=== PATIENT | female | born 1975 | race African-American/Black ===

== ENCOUNTER 2017-10-19 15:02 | Outpatient (CLI) | payer MEDICAID ==
[2014-04-14 10:50] VITALS: Ht 157.5 cm; Wt 68.0 kg
[~2017-10-19] VITALS: Ht 157.5 cm; Wt 68.0 kg
[~2017-10-19 15:02] MED LIST: AMOX-362 PO; AMOX-559 PO; ARIP20TA11 PO; CEPH-13 PO; CEPH250C37 PO; IBUP800T37 PO; INSU100I28 SQ; INSU100I30 SQ; LANI SUBQ; LISI20TA29 PO; LOR5/325 PO; LOVA20TA99 PO; LURA40TA3 PO; METO-233 PO; MUPI15CR2 TP; NAPR375T44 PO; POTA20TA85 PO; SERT-1 PO; TRAM-420 PO; [UNRECOGNIZED DRUG - REMARK]
--- NOTE | 2017-10-20 10:03 | Medical Nutrition Therapy ---
Nutrition Anthropometrics Height (Inches): 62.00 Weight (Pounds): 150 BMI Calculated: 24.32 [place] Nutrition Score: [place]th Nutrition Risk Score: Dietary Referral Nutrition Risk Factors: Nutrition Risk Comment: Physical Findings Physical Appearance: Overweight BMI 25-29 (27.4) Skin Appearance Skin Appearance: Edema Edema Location Modifier: Edema Location: Type of Edema: Degree of Edema: Gastrointestinal Symptoms GI Symtoms: Tube Present: Bowel Sounds: Recent Bowel Pattern: Stool Characteristics: Nutrition/Food History Increased Appetite Skipped Meals: Yes (ocassionally) Alcohol Use: Never Exercise: No Breakfast: 3 cups oatmeal or cold cereal w/ 1/2 banana, or breakfast burrito Lunch: 1.5 cup rice, 3 oz pork, veggies Dinner: 1 cup rice, 3 oz meat, veggies, 1 small apple Snacks: popcorn, fruit, or cheese and crackers (has 1/2 cup milk w/ meals) Nutritional Education Nutrition Education Topic: Diabetic Nutrition Learning Barriers: Language (Pt stated she speaks Bengali and Finnish. Offered tajik education materials but pt said Finnish was acceptable.) Learning Readiness: Interested Teaching Methods: Discussion, Handout, Demonstration Response to Teaching: Verbalize understanding, Reinforcement needed Teaching Recipient: Patient, Significant Other Nutrition Counseling: Pt is a 41-year-old female with type 2 diabetes. Pt has a A1c of 15. Her blood sugars typically run in the 300s. Pt reports when she lost weight 7-10 years ago she had an improved A1C. She said during that time she cut down carbs and meat. Pt is averaging 75-90 grams of carbs per meal, specifically oatmeal, rice, and cold cereals. We discussed aiming for 45 grams per meal or three 1/2 cup servings. Pt thought that carbs were only "sweet" foods such as desserts. We discussed that carbohydrates include starchy foods, milk, fruit, and sweets. Discusesed glycemic index and carbs that imcreases BG rapidly like the rice, inst oatmeal and cold ceral that she consumes. Practiced carb counting on a sample meal plan. Pt was unable to return demonstration initiall then was able to correctly count 1 menu. Pt needs additional reinforcement on carb counting if she goes on a pump. Pt is very interested in the pump because she does not like giving herself insulin and checking her blood sugar option. We discussed that the pump does still require her to check her blood sugar often and that the pump must be changed out every 3 days. Pt felt that the pump would really help her get her blood sugar under control. Pt gave permission to tristin name to [facility] to contact her for possible insulin pump. Discussed that carb counting would be very important when she went on the pump. She was willing to try carb counting. Nutrition Monitoring & Eval RD Patient Assessment Time: [address] Assessment Type: RD Education Nutritional Comment: Provided 1 hours of diabetes education focusing on nutrition. Copies To Copies to: ALEAH ABURTO PA-C, BETH Oct 19, 2017 16:30
== END 2017-11-01 16:02 | disposition home or self-care (01) ==
LOC: DIET 15:02
PROVIDERS: ATTEND Physician Assistant
DX: E11.69 Type 2 diabetes mellitus with other specified complication (principal); Z79.4 Long term (current) use of insulin; Z68.24 Body mass index [BMI] 24.0-24.9, adult
CPT/HCPCS: G0108 ×2

== ENCOUNTER 2018-01-23 10:21 | Emergency (ER) | payer MEDICAID ==
[2014-04-14 10:50] VITALS: Wt 68.0 kg
[2018-01-23] MEDS ORDERED: NS(*) 0.9% 1000 ML BAG 1,000 ML IV ONE (10:38)
[2018-01-23] MEDS ORDERED: DIPHTH/TETANUS/ACEL. PERTUSSIS IM ONLY ONE (11:05)
[2018-01-23] MEDS ORDERED: fentaNYL CITR 100 MCG/2 ML AMP IVP ONE (11:05)
[2018-01-23 11:08] LABS: PLATELET COUNT, AUTOMATED 224 K/uL (150-450)
[2018-01-23] MEDS ORDERED: INS HUM REG* 100 U/ML(ER ONLY) 100 UNIT in NS(*) 0.9% 100 ML BAG 99 ML IV SCH (11:30)
--- NOTE | 2018-01-23 11:45 | ER Report ---
History and Physical Time Seen By MD: 11:00 Hx. of Stated Complaint: pt presents with superficial cut to l thumb last night. Pt is type 2 diabetic and thinks her elevater glucose last night (600) was due to her cut HPI/ROS 42-year-old female ambulatory to the ER has a small laceration left thumb is a type II diabetic on insulin states that to the nurses that she has had problems getting her medications tells me that she hasn't missed any doses as her insulin glucometer has read high the last 2 days Allergies: Coded Allergies: quinine (Verified Allergy, Severe, SOB, 01/23/18) Home Meds Reported Medications Metoprolol Succinate (TOPROL XL) 50 Mg Tab.er.24h, 2 TAB PO QDAY, TAB 05/19/16 Insulin Glargine (LANTUS) 100 Unit/Ml Soln, 24 UNIT SUBQ HS, ML 05/19/16 Insulin Lispro 100 Un/Ml Pen (HUMALOG 3 ML PEN) 100 Unit/1 Ml Insuln.pen, 27 UNIT SQ ACHS, #1 3 Refills FOR GLUCOSE 150-200 GIVE 2 UNITS. FOR GLUCOSE 201-250 GIVE 4 UNITS. FOR GLUCOSE 251-300 GIVE 6 UNITS. FOR GLUCOSE 301-350 GIVE 8 UNITS. FOR GLUCOSE OVER 350 GIVE 10 UNITS. IF GLUCOSE UNDER 50, DRINK JUICE IF AWAKE OR CALL DOCTOR OR 911 IF NOT AWAKE. IF GLUCOSE OVER 400 GIVE 10 UNITS AND CALL DOCTOR. 04/17/14 Sertraline Hcl (ZOLOFT) 50 Mg Tablet, 50 MG PO QDAY 04/17/14 Lurasidone Hcl (LATUDA) 40 Mg Tablet, 60 MG PO QAM TAKE PER PEAK WELLNESS. TAKE WITH FOOD. 04/17/14 Lisinopril (LISINOPRIL) 20 Mg Tablet, 40 MG PO QDAY, #30 3 Refills 04/17/14 Insulin Glargine 100 Un/Ml Pen (LANTUS SOLOSTAR PEN) 100 Unit/1 Ml Insuln.pen, 24 UNIT SQ DAILY, #1 4 Refills 04/17/14 Potassium Chloride (KLOR-CON M20) 20 Meq Tab.er.prt, 20 MEQ PO QDAY, #30 3 Refills 04/17/14 Discontinued Scripts Amoxicillin (AMOXICILLIN) 500 Mg Capsule, 1 CAP PO Q8H, #15 CAPSULE 0 Refills TAKE ONE CAPSULE BY MOUTH EVERY 8 HOURS Prov:KASARDA,DEIRDRE C MD 09/16/17 Naproxen (NAPROXEN) 375 Mg Tablet, 375 MG PO TID for PAIN, #30 TAB 0 Refills Prov:DEIRDRE SUAREZ MD 09/16/17 Past Medical/Surgical History Type II diabetes, hypertension, and depression Reviewed Nurses Notes: Yes Old Medical Records Reviewed: Yes Hx Smoking: Yes (10/12PPD) Smoking Status: Current: Every Day Smoker Exposure to Second Hand Smoke?: No Hx Substance Use Disorder: No Hx Alcohol Use: No Constitutional Vital Sign - Last 24 Hours 01/23/18 01/23/18 01/23/18 01/23/18 10:25 10:26 10:51 11:21 Temp 97.7 Pulse 79 75 71 Resp 20 22 10 B/P (MAP) 126/82 (97) 126/77 Pulse Ox 92 O2 Delivery Room Air 01/23/18 01/23/18 01/23/18 01/23/18 11:51 11:56 12:26 12:56 Pulse 71 70 70 75 Resp 16 15 17 15 Pulse Ox 95 92 01/23/18 01/23/18 01/23/18 01/23/18 13:07 13:10 13:15 13:17 Pulse 70 B/P (MAP) 137/82 (100) 137/82 (100) 134/104 (114) 137/84 (101) Pulse Ox 94 O2 Delivery Room Air Intake and Output 01/23/18 01/23/18 01/24/18 15:00 23:00 07:00 Intake Total 710.7 ml Balance 710.7 ml Physical Exam 42-year-old female she is alert anxious head normocephalic/atraumatic tympanic membranes are non-reddened throat is non-reddened mucous membranes are dry neck is supple no JVD heart rate regular no murmurs rubs and gallops lungs clear to auscultation abdomen is soft moves all extremities does have a laceration left thumb no active bleeding currently laceration is 1 inch Medical Decision Making Data Points Result Diagram: 01/23/18 1054 01/23/18 1054 Laboratory Hematology Test 01/23/18 10:54 01/23/18 11:41 01/23/18 12:56 Red Blood Count 5.17 M/uL (4.17-5.56) Mean Corpuscular Volume 87.9 fL (80.0-96.0) Mean Corpuscular Hemoglobin 30.1 pg (26.0-33.0) Mean Corpuscular Hemoglobin Concent 34.3 g/dL (32.0-36.0) Red Cell Distribution Width 13.0 % (11.5-14.5) Mean Platelet Volume 9.1 fL (7.2-11.1) Neutrophils (%) (Auto) 61.7 % (39.4-72.5) Lymphocytes (%) (Auto) 29.7 % (17.6-49.6) Monocytes (%) (Auto) 7.0 % (4.1-12.4) Eosinophils (%) (Auto) 0.7 % (0.4-6.7) Basophils (%) (Auto) 0.9 % (0.3-1.4) Nucleated RBC Relative Count (auto) 0.0 /100WBC Neutrophils # (Auto) 3.4 K/uL (2.0-7.4) Lymphocytes # (Auto) 1.6 K/uL (1.3-3.6) Monocytes # (Auto) 0.4 K/uL (0.3-1.0) Eosinophils # (Auto) 0.0 K/uL (0.0-0.5) Basophils # (Auto) 0.0 K/uL (0.0-0.1) Nucleated RBC Absolute Count (auto) 0.00 K/uL Blood Gas Patient Temperature Unknown DEGREES Venous Blood pH 7.37 (7.31-7.41) Venous Blood Partial Pressure CO2 43 mmHg Venous Blood Partial Pressure O2 35 mmHg Venous Blood HCO3 25 mmol/L Venous Blood Oxygen Saturation 64 % Venous Blood Base Excess -1 mmol/L Oxygen Liters/Minute Room air Sodium Level 127 mmol/L (137-145) Potassium Level 4.6 mmol/L (3.5-5.0) Chloride Level 89 mmol/L (98-107) Carbon Dioxide Level 24 mmol/L (22-31) Blood Urea Nitrogen 12 mg/dl (7-18) Creatinine 0.80 mg/dl (0.52-1.04) Glomerular Filtration Rate Calc > 60.0 Random Glucose 813 mg/dl (75-110) Osmolality 314 mOSM/K (275-295) Calcium Level 9.5 mg/dl (8.4-10.2) Total Bilirubin 0.6 mg/dl (0.2-1.3) Aspartate Amino Transf (AST/SGOT) 21 U/L (0-35) Alanine Aminotransferase (ALT/SGPT) 23 U/L (0-56) Alkaline Phosphatase 214 U/L (0-126) Troponin I < 0.012 ng/ml Total Protein 7.1 gm/dl (6.3-8.2) Albumin 3.9 g/dl (3.5-5.0) Thyroid Stim Hormone, Ultra Sensitv 0.803 uIU/ml (0.465-4.680) Human Chorionic Gonadotropin, Qual Negative (NEGATIVE) Acetone, Qualitative Negative Urine Color Colorless Urine Clarity Clear Urine pH 5.0 pH (4.8-9.5) Urine Specific [place] 1.024 Urine Protein Negative mg/dL (NEGATIVE) Urine Glucose (UA) 500 mg/dL (NEGATIVE) Urine Ketones Negative mg/dL (NEGATIVE) Urine Blood Negative (NEGATIVE) Urine Nitrite Negative (NEGATIVE) Urine Bilirubin Negative (NEGATIVE) Urine Urobilinogen Negative mg/dL (0.2-1.9) Urine Leukocyte Esterase Negative (NEGATIVE) Urine RBC <1 /HPF (0-2/HPF) Urine WBC 1 /HPF (0-5/HPF) Urine Squamous Epithelial Cells Moderate /LPF (</=FEW) Urine Bacteria Negative /HPF (NONE-FEW) Urine Mucus None /HPF (NONE-FEW) Urine Opiates Screen Negative Urine Barbiturates Screen Negative Ur Tricyclic Antidepressants Screen Negative Urine Phencyclidine Screen Negative Urine Amphetamines Screen Negative Urine Benzodiazepines Screen Negative Urine Cocaine Screen Negative Urine Cannabinoids Screen Positive Whole Blood Glucose 410 mg/DL (75-110) Chemistry Test 01/23/18 10:54 01/23/18 11:41 01/23/18 12:56 White Blood Count 5.5 k/uL (4.5-11.0) Red Blood Count 5.17 M/uL (4.17-5.56) Hemoglobin 15.6 g/dL (12.0-16.0) Hematocrit 45.4 % (34.0-47.0) Mean Corpuscular Volume 87.9 fL (80.0-96.0) Mean Corpuscular Hemoglobin 30.1 pg (26.0-33.0) Mean Corpuscular Hemoglobin Concent 34.3 g/dL (32.0-36.0) Red Cell Distribution Width 13.0 % (11.5-14.5) Platelet Count 224 K/uL (150-450) Mean Platelet Volume 9.1 fL (7.2-11.1) Neutrophils (%) (Auto) 61.7 % (39.4-72.5) Lymphocytes (%) (Auto) 29.7 % (17.6-49.6) Monocytes (%) (Auto) 7.0 % (4.1-12.4) Eosinophils (%) (Auto) 0.7 % (0.4-6.7) Basophils (%) (Auto) 0.9 % (0.3-1.4) Nucleated RBC Relative Count (auto) 0.0 /100WBC Neutrophils # (Auto) 3.4 K/uL (2.0-7.4) Lymphocytes # (Auto) 1.6 K/uL (1.3-3.6) Monocytes # (Auto) 0.4 K/uL (0.3-1.0) Eosinophils # (Auto) 0.0 K/uL (0.0-0.5) Basophils # (Auto) 0.0 K/uL (0.0-0.1) Nucleated RBC Absolute Count (auto) 0.00 K/uL Blood Gas Patient Temperature Unknown DEGREES Venous Blood pH 7.37 (7.31-7.41) Venous Blood Partial Pressure CO2 43 mmHg Venous Blood Partial Pressure O2 35 mmHg Venous Blood HCO3 25 mmol/L Venous Blood Oxygen Saturation 64 % Venous Blood Base Excess -1 mmol/L Oxygen Liters/Minute Room air Glomerular Filtration Rate Calc > 60.0 Osmolality 314 mOSM/K (275-295) Calcium Level 9.5 mg/dl (8.4-10.2) Total Bilirubin 0.6 mg/dl (0.2-1.3) Aspartate Amino Transf (AST/SGOT) 21 U/L (0-35) Alanine Aminotransferase (ALT/SGPT) 23 U/L (0-56) Alkaline Phosphatase 214 U/L (0-126) Troponin I < 0.012 ng/ml Total Protein 7.1 gm/dl (6.3-8.2) Albumin 3.9 g/dl (3.5-5.0) Thyroid Stim Hormone, Ultra Sensitv 0.803 uIU/ml (0.465-4.680) Human Chorionic Gonadotropin, Qual Negative (NEGATIVE) Acetone, Qualitative Negative Urine Color Colorless Urine Clarity Clear Urine pH 5.0 pH (4.8-9.5) Urine Specific [place] 1.024 Urine Protein Negative mg/dL (NEGATIVE) Urine Glucose (UA) 500 mg/dL (NEGATIVE) Urine Ketones Negative mg/dL (NEGATIVE) Urine Blood Negative (NEGATIVE) Urine Nitrite Negative (NEGATIVE) Urine Bilirubin Negative (NEGATIVE) Urine Urobilinogen Negative mg/dL (0.2-1.9) Urine Leukocyte Esterase Negative (NEGATIVE) Urine RBC <1 /HPF (0-2/HPF) Urine WBC 1 /HPF (0-5/HPF) Urine Squamous Epithelial Cells Moderate /LPF (</=FEW) Urine Bacteria Negative /HPF (NONE-FEW) Urine Mucus None /HPF (NONE-FEW) Urine Opiates Screen Negative Urine Barbiturates Screen Negative Ur Tricyclic Antidepressants Screen Negative Urine Phencyclidine Screen Negative Urine Amphetamines Screen Negative Urine Benzodiazepines Screen Negative Urine Cocaine Screen Negative Urine Cannabinoids Screen Positive Whole Blood Glucose 410 mg/DL (75-110) Toxicology Test 01/23/18 10:54 01/23/18 11:41 Acetone, Qualitative Negative Urine Opiates Screen Negative Urine Barbiturates Screen Negative Ur Tricyclic Antidepressants Screen Negative Urine Phencyclidine Screen Negative Urine Amphetamines Screen Negative Urine Benzodiazepines Screen Negative Urine Cocaine Screen Negative Urine Cannabinoids Screen Positive Urinalysis Test 01/23/18 11:41 Urine Color Colorless Urine Clarity Clear Urine pH 5.0 pH (4.8-9.5) Urine Specific [place] 1.024 Urine Protein Negative mg/dL (NEGATIVE) Urine Glucose (UA) 500 mg/dL (NEGATIVE) Urine Ketones Negative mg/dL (NEGATIVE) Urine Blood Negative (NEGATIVE) Urine Nitrite Negative (NEGATIVE) Urine Bilirubin Negative (NEGATIVE) Urine Urobilinogen Negative mg/dL (0.2-1.9) Urine Leukocyte Esterase Negative (NEGATIVE) Urine RBC <1 /HPF (0-2/HPF) Urine WBC 1 /HPF (0-5/HPF) Urine Squamous Epithelial Cells Moderate /LPF (</=FEW) Urine Bacteria Negative /HPF (NONE-FEW) Urine Mucus None /HPF (NONE-FEW) EKG/Imaging Monitor Interpretation: Normal Sinus Rhythm ED Course/Re-evaluation Clinical Indication for ER IV: Hydration ED Course Did discuss the patient with Dr. Douglas Hudson he feels that she can be treated as an outpatient we did give her some IV insulin and fluids have lowered her sugar to 400 she will be going to get her normal insulin and restarting her regime have contacted Dr. Aleah Aburto's office to get sliding scale for the patient apparently she's lost her sliding scale for home use Re-evaluation Diagnosis hyperglycemia, laceration left thumb, noncompliance with medications Procedure Patient stated thumb laceration had been bleeding overnight was bothering her to the point she could not sleep did offer to put a stitch in it for her did a digital block with 1% lidocaine 3 mL after the digital block was done patient refused to have a stitch put in stated she felt like it might hurt she did allow me to Steri-Strip the laceration 3 Steri-Strips are placed in the one- inch laceration left thumb Decision to Disposition Date: Jan 23, 2018 Decision to Disposition Time: 13:24 Depart Departure Latest Vital Signs Vital Signs Date Time Temp Pulse Resp B/P (MAP) Pulse Ox O2 Delivery O2 Flow Rate FiO2 01/23/18 13:17 137/84 (101) 01/23/18 13:10 70 94 Room Air 01/23/18 12:56 15 01/23/18 10:26 97.7 Impression: Primary Impression: Hyperglycemia Additional Impression: Laceration of left thumb Condition: Improved Disposition: HOME OR SELF-CARE Referrals: ALEAH ABURTO PA-C (PCP) 1 Day Patient Instructions: Diabetic Hyperglycemia (ED), Laceration (ED), Steristrips (ED) Additional Instructions: Sliding scale as given by your primary care physician, take your insulin as instructed, follow-up with Aleah tomorrow Problem Qualifiers ARTEMIO BURTON Jan 23, 2018 11:45
--- NOTE | 2018-01-23 12:18 | EKG ---
FACILITY: [facility] [place] PATIENT NAME: IGNACIA BENAVIDES : [id number] MR: [id number] V: [id number] EXAM DATE: ORDERING PHYSICIAN: ARTEMIO BURTON TECHNOLOGIST: CALEB Test Reason : ALTERED LOC Blood Pressure : / mmHG Vent. Rate : 065 BPM Atrial Rate : 065 BPM P-R Int : 140 ms QRS Dur : 082 ms QT Int : 430 ms P-R-T Axes : 056 003 019 degrees QTc Int : 447 ms Sinus rhythm Borderline left axis Nonspecific ST findings diffusely - suspect early repolarization, but cannot exclude other causes Confirmed by COMPA BRASHER [id number] on 01/23/2018 5:06:52 PM Referred By: MACIEJ Confirmed By:COMPA BRASHER
[2018-01-23] MEDS ORDERED: NS(*) 0.9% 1000 ML BAG 1,000 ML IV PRN (12:25)
--- NOTE | 2018-01-23 12:55 | RADIOLOGY IMAGING REPORT ---
FACILITY: [facility] PATIENT NAME: Kim Price : 1975 MR: [id number] V: [id number] EXAM DATE: [id number] ORDERING PHYSICIAN: ARTEMIO BURTON TECHNOLOGIST: Location: [facility] [place] Patient: Kim Price : 1975 Visit/Account:[id number] Date of Sevice: 01/23/2018 Exam type: CHEST SINGLE AP History: Cough hyperglycemia Comparison: April 13, 2014. Findings: The lungs are free of acute effusions, infiltrates or edema. Cardiac silhouette is normal in size. The trachea is in midline. There is no evidence of pneumothorax or pneumomediastinum. IMPRESSION: 1. No acute cardiac pulmonary process is seen Report Dictated By: Richa Archibald MD at 01/23/2018 12:31 PM Report E-Signed By: Richa Archibald MD at 01/23/2018 12:50 PM WSN:[email or web address]
[2018-01-23 13:17] VITALS: BP 137/84
== END 2018-01-23 13:18 | disposition home or self-care (01) ==
LOC: ER 10:30
DX: S61.012A Laceration without foreign body of left thumb without damage to nail, initial encounter (principal); E11.65 Type 2 diabetes mellitus with hyperglycemia
CPT/HCPCS: 36416; 71045; 80305; 81001; 82009; 82803; 82948; 83930; 84443; 84484; 84703; 85025; 90471; 90715; 93005; 96361; 96365; 96375; 99284; J1815; J3010; J7030; J7050; 82040; 82247; 82310; 82374; 82435; 82565; 82947; 84075; 84132; 84155; 84295; 84450; 84460; 84520

== ENCOUNTER 2018-03-28 18:12 | Emergency (ER) | payer MEDICAID ==
[2014-04-14 10:50] VITALS: Wt 68.0 kg
[2018-03-28] MEDS ORDERED: ATOR40TA24 PO (18:24)
--- NOTE | 2018-03-28 18:26 | ER Report ---
History and Physical Time Seen By : 18:26 Hx. of Stated Complaint: pt is in tears saying she has insomnia, has not slept in months, has back pain from a fall 4 yrs ago HPI/ROS CHIEF COMPLAINT: insomnia, constipation, sore throat HISTORY OF PRESENT ILLNESS: This is a 42 year old female. She tells me she is severely fatigued. Indicated that she cannot sleep.. She take Effexor and Latuda for depression. She says that she also takes Amitriptyline at bedtime, but does not remember the dose. In the past she has been on Seroquel and one other medicine that she cannot remember. She said that these were stopped because of her blood sugars going up when she takes them. She also has pain from a past coccyx injury and the pain interferes with sleep as well. She has been having severe constipation as well. Initially told me that her last BM was 3 days ago, but then remembered she went today after drinking a glass of milk. She also has a sore throat for the last few days, hurts only when she tries to swallow. No fevers or chills. No shortness of breath. No chest pain. No abdominal pain. No nausea or vomiting. REVIEW OF SYSTEMS: As above. Allergies: Coded Allergies: quinine (Verified Allergy, Severe, SOB, 03/28/18) Home Meds Active Scripts Hydroxyzine Hcl (HYDROXYZINE HCL) 50 Mg Tablet, 50 MG PO QHS Y for INSOMNIA, # 30 TAB 0 Refills Prov:DANGELO SAL MD 03/28/18 Potassium Chloride (KLOR-CON M20) 20 Meq Tab.er.prt, 20 MEQ PO QDAY, #30 TAB 0 Refills Prov:DANGELO SAL MD 03/28/18 Reported Medications Atorvastatin Calcium (LIPITOR) 40 Mg Tablet, 1 TAB PO QDAY, TAB 03/28/18 Metoprolol Succinate (TOPROL XL) 50 Mg Tab.er.24h, 2 TAB PO QDAY, TAB 05/19/16 Insulin Glargine (LANTUS) 100 Unit/Ml Soln, 24 UNIT SUBQ HS, ML 05/19/16 Insulin Lispro 100 Un/Ml Pen (HUMALOG 3 ML PEN) 100 Unit/1 Ml Insuln.pen, 27 UNIT SQ ACHS, #1 3 Refills FOR GLUCOSE 150-200 GIVE 2 UNITS. FOR GLUCOSE 201-250 GIVE 4 UNITS. FOR GLUCOSE 251-300 GIVE 6 UNITS. FOR GLUCOSE 301-350 GIVE 8 UNITS. FOR GLUCOSE OVER 350 GIVE 10 UNITS. IF GLUCOSE UNDER 50, DRINK JUICE IF AWAKE OR CALL DOCTOR OR 911 IF NOT AWAKE. IF GLUCOSE OVER 400 GIVE 10 UNITS AND CALL DOCTOR. 04/17/14 Sertraline Hcl (ZOLOFT) 50 Mg Tablet, 50 MG PO QDAY 04/17/14 Lurasidone Hcl (LATUDA) 40 Mg Tablet, 60 MG PO QAM TAKE PER PEAK WELLNESS. TAKE WITH FOOD. 04/17/14 Lisinopril (LISINOPRIL) 20 Mg Tablet, 40 MG PO QDAY, #30 3 Refills 04/17/14 Insulin Glargine 100 Un/Ml Pen (LANTUS SOLOSTAR PEN) 100 Unit/1 Ml Insuln.pen, 42 UNIT SQ DAILY, #1 4 Refills 04/17/14 Potassium Chloride (KLOR-CON M20) 20 Meq Tab.er.prt, 20 MEQ PO QDAY, #30 3 Refills 04/17/14 Reviewed Nurses Notes: Yes Hx Smoking: Yes (D) Smoking Status: Current: Every Day Smoker Exposure to Second Hand Smoke?: No Hx Substance Use Disorder: No Hx Alcohol Use: No Constitutional Vital Sign - Last 24 Hours 03/28/18 03/28/18 03/28/18 03/28/18 18:17 18:18 18:27 18:30 Temp 97.9 Pulse 86 80 Resp 22 B/P (MAP) 150/92 150/92 (111) 124/74 (91) Pulse Ox 96 95 O2 Delivery Room Air 03/28/18 03/28/18 03/28/18 03/28/18 18:42 18:57 19:00 19:12 Pulse 88 78 77 B/P (MAP) ???/??? (9516) Pulse Ox 96 95 95 03/28/18 03/28/18 03/28/18 03/28/18 19:27 19:30 19:42 19:57 Pulse 73 78 86 B/P (MAP) ???/??? (7377) Pulse Ox 99 95 97 03/28/18 03/28/18 03/28/18 03/28/18 20:02 20:05 20:17 20:32 Pulse ??? 83 87 B/P (MAP) 160/92 (114) Pulse Ox 95 97 Physical Exam General Appearance: The patient is alert. No acute distress. Eyes: Pupils are equal, round. No pallor, injection or icterus. ENT: Mucous membranes are moist. Normal oral mucosa. Posterior oropharynx has slight erythema, but no exudates or hypertrophy. Normal tympanic membranes and canals. Neck: Supple and non tender. Small anterior cervical lymphadenopathy. Respiratory: Lungs are clear to auscultation. Cardiovascular: Regular rate and rhythm. No murmurs, gallops or rubs. Normal capillary refill. Gastrointestinal: Abdomen is soft and non tender. Nondistended. Normal active bowel sounds. Neurological: Alert and oriented x3. No focal neurologic deficits. Skin: Warm and dry. No rashes. DIFFERENTIAL DIAGNOSIS: After history and physical exam, differential diagnosis was considered for a patient with fatigue, insomnia, sore throat and constipation. Medical Decision Making Data Points Result Diagram: 03/28/18199903/28/181999 Laboratory Hematology Test 03/28/18 20:00 Red Blood Count 4.59 M/uL (4.17-5.56) Mean Corpuscular Volume 87.0 fL (80.0-96.0) Mean Corpuscular Hemoglobin 30.5 pg (26.0-33.0) Mean Corpuscular Hemoglobin Concent 35.0 g/dL (32.0-36.0) Red Cell Distribution Width 13.9 % (11.5-14.5) Mean Platelet Volume 7.6 fL (7.2-11.1) Neutrophils (%) (Auto) 74.5 % (39.4-72.5) Lymphocytes (%) (Auto) 16.8 % (17.6-49.6) Monocytes (%) (Auto) 7.6 % (4.1-12.4) Eosinophils (%) (Auto) 0.3 % (0.4-6.7) Basophils (%) (Auto) 0.8 % (0.3-1.4) Nucleated RBC Relative Count (auto) 0.0 /100WBC Neutrophils # (Auto) 6.5 K/uL (2.0-7.4) Lymphocytes # (Auto) 1.5 K/uL (1.3-3.6) Monocytes # (Auto) 0.7 K/uL (0.3-1.0) Eosinophils # (Auto) 0.0 K/uL (0.0-0.5) Basophils # (Auto) 0.1 K/uL (0.0-0.1) Nucleated RBC Absolute Count (auto) 0.00 K/uL Sodium Level 136 mmol/L (137-145) Potassium Level 3.4 mmol/L (3.5-5.0) Chloride Level 95 mmol/L (98-107) Carbon Dioxide Level 30 mmol/L (22-31) Blood Urea Nitrogen 12 mg/dl (7-18) Creatinine 0.80 mg/dl (0.52-1.04) Glomerular Filtration Rate Calc > 60.0 Random Glucose 110 mg/dl (75-110) Calcium Level 9.3 mg/dl (8.4-10.2) Total Bilirubin 0.3 mg/dl (0.2-1.3) Aspartate Amino Transf (AST/SGOT) 27 U/L (0-35) Alanine Aminotransferase (ALT/SGPT) 32 U/L (0-56) Alkaline Phosphatase 94 U/L (0-126) Total Protein 6.9 g/dl (6.3-8.2) Albumin 3.5 g/dl (3.5-5.0) Chemistry Test 03/28/18 20:00 White Blood Count 8.7 k/uL (4.5-11.0) Red Blood Count 4.59 M/uL (4.17-5.56) Hemoglobin 14.0 g/dL (12.0-16.0) Hematocrit 39.9 % (34.0-47.0) Mean Corpuscular Volume 87.0 fL (80.0-96.0) Mean Corpuscular Hemoglobin 30.5 pg (26.0-33.0) Mean Corpuscular Hemoglobin Concent 35.0 g/dL (32.0-36.0) Red Cell Distribution Width 13.9 % (11.5-14.5) Platelet Count 238 K/uL (150-450) Mean Platelet Volume 7.6 fL (7.2-11.1) Neutrophils (%) (Auto) 74.5 % (39.4-72.5) Lymphocytes (%) (Auto) 16.8 % (17.6-49.6) Monocytes (%) (Auto) 7.6 % (4.1-12.4) Eosinophils (%) (Auto) 0.3 % (0.4-6.7) Basophils (%) (Auto) 0.8 % (0.3-1.4) Nucleated RBC Relative Count (auto) 0.0 /100WBC Neutrophils # (Auto) 6.5 K/uL (2.0-7.4) Lymphocytes # (Auto) 1.5 K/uL (1.3-3.6) Monocytes # (Auto) 0.7 K/uL (0.3-1.0) Eosinophils # (Auto) 0.0 K/uL (0.0-0.5) Basophils # (Auto) 0.1 K/uL (0.0-0.1) Nucleated RBC Absolute Count (auto) 0.00 K/uL Glomerular Filtration Rate Calc > 60.0 Calcium Level 9.3 mg/dl (8.4-10.2) Total Bilirubin 0.3 mg/dl (0.2-1.3) Aspartate Amino Transf (AST/SGOT) 27 U/L (0-35) Alanine Aminotransferase (ALT/SGPT) 32 U/L (0-56) Alkaline Phosphatase 94 U/L (0-126) Total Protein 6.9 g/dl (6.3-8.2) Albumin 3.5 g/dl (3.5-5.0) ED Course/Re-evaluation ED Course Discussed the labs with the patient, CBC and CMP as noted. Discussed treatment options for insomnia, but other than a couple of hydrocodone for tonight, told her she would need to discuss pain in the coccyx with her primary care provider. Will use Hydroxyzine for insomnia. Will have her use miralax for constipation with use of laxatives as needed. Re-starting her on a potassium supplement and let her know she needs labs in 1-2 weeks. Decision to Disposition Date: Mar 28, 2018 Decision to Disposition Time: 20:37 Depart Departure Latest Vital Signs Vital Signs Date Time Temp Pulse Resp B/P (MAP) Pulse Ox O2 Delivery O2 Flow Rate FiO2 03/28/18 20:32 87 97 03/28/18 20:05 160/92 (114) 03/28/18 18:17 97.9 22 Room Air Impression: Primary Impression: Coccygeal pain, chronic Additional Impressions: Insomnia Hypokalemia Constipation Condition: Improved Disposition: HOME OR SELF-CARE Referrals: ALEAH ABURTO PA-C (PCP) New Scripts Hydroxyzine Hcl (HYDROXYZINE HCL) 50 Mg Tablet 50 MG PO QHS Y for INSOMNIA, #30 TAB 0 Refills Prov: DANGELO SAL MD 03/28/18 Potassium Chloride (KLOR-CON M20) 20 Meq Tab.er.prt 20 MEQ PO QDAY, #30 TAB 0 Refills Prov: DANGELO SAL MD 03/28/18 Patient Instructions: Constipation (ED), Hypokalemia (ED), Insomnia (ED) Additional Instructions: For trouble sleeping: Take Hydroxyzine 25mg tablets, 1-2 at bedtime to help with insomnia. For constipation: Get some over the counter Dulcolax tablets and take 1 if you have not had a bowel movement in 3 days You can get some over the counter Miralax powder. Mix one scoop in liquid and drink once a day. For low potassium: Start taking a 20mEq potassium supplement once a day. Follow-up with your regular doctor for repeat lab testing. Problem Qualifiers Additional Impressions: Insomnia Insomnia type: unspecified Qualified Codes: G47.00 - Insomnia, unspecified Constipation Constipation type: unspecified constipation type Qualified Codes: K59.00 - Constipation, unspecified DANGELO SAL MD Mar 28, 2018 18:26
[2018-03-28 20:04] LABS: PLATELET COUNT, AUTOMATED 238 K/uL (150-450)
[2018-03-28 20:05] VITALS: BP 160/92
[2018-03-28] MEDS ORDERED: hydrOXYzine 25 MG TAB TH 2 TAB/BOTTLE PO ONE (20:35)
[2018-03-28] MEDS ORDERED: ACET/HYDROC 5/325MG TH ER ONLY 2 TAB/BOTTLE PO ONE (20:35)
[2018-03-28] MEDS ORDERED: HYDR-4228 PO (20:43)
[2018-03-28] MEDS ORDERED: POTA20TA85 PO (20:43)
== END 2018-03-28 20:52 | disposition home or self-care (01) ==
LOC: ER 18:45
DX: M53.3 Sacrococcygeal disorders, not elsewhere classified (principal); G47.00 Insomnia, unspecified; E87.6 Hypokalemia; K59.00 Constipation, unspecified; F17.210 Nicotine dependence, cigarettes, uncomplicated
CPT/HCPCS: 82040; 82247; 82310; 82374; 82435; 82565; 82947; 84075; 84132; 84155; 84295; 84450; 84460; 84520; 85025; 99282

== ENCOUNTER 2018-06-26 09:39 | Emergency (ER) | payer MEDICAID ==
[2014-04-14 10:50] VITALS: Wt 63.5 kg
[~2018-06-26 09:39] MED LIST changes: +ATOR40TA24 PO; +HYDR-4228 PO
--- NOTE | 2018-06-26 09:58 | ER Report ---
History and Physical Time Seen By : 09:58 Hx. of Stated Complaint: PT REPORTS PROBLEMS WITH DIABETES, NUMBNESS AND TINGLING IN HANDS/ARMS, AND DEPRESSION/ANXIETY ABOUT DIABETES AND UPCOMING SURGERY HPI/ROS 42-year-old female with a history of diabetes, anxiety, and depression presents to the emergency department with an episode of palpitations, tingling in her hands and feet, and low blood sugar this morning. She states that her Lantus to us with increased a couple weeks ago, and she feels as if her blood sugars have been low since them. She records them sometimes in the 30s. She did not take her Lantus last night, so took it this morning. After taking her Lantus immediately her blood sugar was in the 200s, so she also took her sliding scale. She admits that she is not quite sure how much of her sliding scale to a taxi take. She is asking for a new scale, so she can have better compliance. Her symptoms spontaneously is off by the time she came to the emergency department. She denies any chest pain, headache, or shortness of breath. No focal neurologic def icits. She said she did get anxious this morning secondary to a cataract surgery she was supposed to have this morning. She did start to hyperventilate which is when her hands and feet became tingly. Allergies: Coded Allergies: quinine (Verified Allergy, Severe, SOB, 06/26/18) Home Meds Active Scripts Hydroxyzine Hcl (HYDROXYZINE HCL) 50 Mg Tablet, 50 MG PO QHS PRN for INSOMNIA, #30 TAB 0 Refills Prov:DANGELO SAL MD 03/28/18 Potassium Chloride (KLOR-CON M20) 20 Meq Tab.er.prt, 20 MEQ PO QDAY, #30 TAB 0 Refills Prov:DANGELO SAL MD 03/28/18 Reported Medications [place]-3 Fatty Acids/Fish Oil (FISH OIL 1,000 MG CAPSULE) 1 Each Capsule, 1 EACH PO DAILY, CAPSULE 06/26/18 Aspirin (ASPIR 81) 81 Mg Tablet.dr, 81 MG PO QDAY, TAB 06/26/18 Atorvastatin Calcium (LIPITOR) 40 Mg Tablet, 1 TAB PO QDAY, TAB 03/28/18 Metoprolol Succinate (TOPROL XL) 50 Mg Tab.er.24h, 2 TAB PO QDAY, TAB 05/19/16 Insulin Lispro 100 Un/Ml Pen (HUMALOG 3 ML PEN) 100 Unit/1 Ml Insuln.pen, 27 UNIT SQ ACHS, #1 3 Refills FOR GLUCOSE 150-200 GIVE 2 UNITS. FOR GLUCOSE 201-250 GIVE 4 UNITS. FOR GLUCOSE 251-300 GIVE 6 UNITS. FOR GLUCOSE 301-350 GIVE 8 UNITS. FOR GLUCOSE OVER 350 GIVE 10 UNITS. IF GLUCOSE UNDER 50, DRINK JUICE IF AWAKE OR CALL DOCTOR OR 911 IF NOT AWAKE. IF GLUCOSE OVER 400 GIVE 10 UNITS AND CALL DOCTOR. 04/17/14 Sertraline Hcl (ZOLOFT) 50 Mg Tablet, 50 MG PO QDAY 04/17/14 Lurasidone Hcl (LATUDA) 40 Mg Tablet, 60 MG PO QAM TAKE PER PEAK WELLNESS. TAKE WITH FOOD. 04/17/14 Lisinopril (LISINOPRIL) 20 Mg Tablet, 40 MG PO QDAY, #30 3 Refills 04/17/14 Insulin Glargine 100 Un/Ml Pen (LANTUS SOLOSTAR PEN) 100 Unit/1 Ml Insuln.pen, 42 UNIT SQ DAILY, #1 4 Refills 04/17/14 Discontinued Reported Medications Insulin Glargine (LANTUS) 100 Unit/Ml Soln, 24 UNIT SUBQ HS, ML 05/19/16 Potassium Chloride (KLOR-CON M20) 20 Meq Tab.er.prt, 20 MEQ PO QDAY, #30 3 Refills 04/17/14 Reviewed Nurses Notes: Yes Old Medical Records Reviewed: Yes Hx Smoking: Yes (4PPD) Smoking Status: Current: Every Day Smoker Exposure to Second Hand Smoke?: No Hx Substance Use Disorder: No Hx Alcohol Use: No Constitutional Vital Sign - Last 24 Hours 06/26/18 06/26/18 06/26/18 06/26/18 09:47 09:51 10:00 10:15 Temp 97.8 Pulse 74 72 66 Resp 20 14 16 B/P (MAP) 166/111 166/111 (129) Pulse Ox 96 93 O2 Delivery Room Air 06/26/18 06/26/18 06/26/18 06/26/18 10:30 10:45 11:00 11:15 Pulse 61 71 72 66 Resp 18 21 21 7 B/P (MAP) 152/92 (112) 126/81 (96) Pulse Ox 95 06/26/18 11:26 Pulse 66 Resp 0 Physical Exam General Appearance: The patient is alert, has no immediate need for airway protection and no current signs of toxicity. Eyes: Pupils equal and round no injection. Respiratory: Chest is non tender, lungs are clear to auscultation. Cardiac: regular rate and rhythm Gastrointestinal: Abdomen is soft and non tender, no masses, bowel sounds normal. Extremities have full range of motion and are non tender. Skin: No rashes or lesions. DIFFERENTIAL DIAGNOSIS: After history and physical exam differential diagnosis was considered for hypoglycemia, panic attack, anxiety reaction Medical Decision Making Data Points Laboratory Hematology Test 06/26/18 11:05 Whole Blood Glucose 106 mg/DL (75-110) Chemistry Test 06/26/18 11:05 Whole Blood Glucose 106 mg/DL (75-110) ED Course/Re-evaluation ED Course This is a very pleasant 42-year-old female who states that the symptoms of feeling anxious, hyperventilating, and experiencing tingling in her hands and feet have been ongoing for 2 months. She does admit to some depression and anxiety. She has an appointment with a behavioral health specialist this week. She also has a follow-up appointment tomorrow with her primary care physician. He denies any SI or HI. She also says that her sugars have been low recently, and thinks that the increase and Lantus 2 months ago was too much. 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 I think given that she is eating less because she now has a job, she should decrease her Lantus. Also, the patient seems confused on her sliding scale regimen. We did give her a magnetic with a chart for her sliding scale. I think her symptoms are combination of anxiety and some hypoglycemia. Given that she says she has had blood sugars in the 30s, I recommended that she decrease her daily Lantus dose. Again she will follow-up with her primary care physician tomorrow. I also placed a consult for her for diabetic education. Decision to Disposition Date: Jun 26, 2018 Decision to Disposition Time: 11:50 Depart Departure Latest Vital Signs Vital Signs Date Time Temp Pulse Resp B/P (MAP) Pulse Ox O2 Delivery O2 Flow Rate FiO2 06/26/18 11:26 66 0 06/26/18 11:00 126/81 (96) 06/26/18 10:30 95 06/26/18 09:47 97.8 Room Air Impression: Primary Impression: Anxiety attack Additional Impression: Medication administered in error Condition: Improved Disposition: HOME OR SELF-CARE Referrals: ALEAH ABURTO PA-C (PCP) Patient Instructions: Generalized Anxiety Disorder (ED) Additional Instructions: Please see the attached sliding scale regimen for your insulin. Take only 35 units of your Lantus until follow-up with your primary doctor. Problem Qualifiers Additional Impression: Medication administered in error Encounter type: initial encounter Injury intent: accidental or unintentional Qualified Codes: T50.901A - Poisoning by unspecified drugs, medicaments and biological substances, accidental (unintentional), initial encounter NELY TORRES MD Jun 26, 2018 09:58
[2018-06-26] MEDS ORDERED: OMEG-11 PO (10:02)
[2018-06-26] MEDS ORDERED: ASPI-1471 PO (10:02)
[2018-06-26 12:00] VITALS: BP 151/99
== END 2018-06-26 12:18 | disposition home or self-care (01) ==
LOC: ER 09:53
DX: T50.901A Poisoning by unspecified drugs, medicaments and biological substances, accidental (unintentional), initial encounter (principal); E11.649 Type 2 diabetes mellitus with hypoglycemia without coma; F17.210 Nicotine dependence, cigarettes, uncomplicated; F41.9 Anxiety disorder, unspecified
CPT/HCPCS: 36416; 82948; 99282

== ENCOUNTER 2018-07-04 20:42 | Emergency (ER) | payer MEDICAID ==
[2014-04-14 10:50] VITALS: Wt 68.5 kg
[2018-07-04 21:30] VITALS: BP 143/69
--- NOTE | 2018-07-04 22:11 | RADIOLOGY IMAGING REPORT ---
FACILITY: [facility] - [place] PATIENT NAME: Kim Price : 1975 MR: [id number] V: [id number] EXAM DATE: ORDERING PHYSICIAN: KALEIGH DE JESUS TECHNOLOGIST: Location: [facility] - [place] Patient: Kim Price : 1975 Visit/Account:[id number] Date of Sevice: 07/04/2018 HEAD W/O CONTRAST, FACIAL BONES W/O CONTRAST HISTORY: Fall with left orbital swelling. COMPARISON: None. CT cervical spine was performed concurrently. TECHNIQUE: Axial images were obtained from the skull base to the vertex without contrast. Sagittal an d coronal reformats were performed. Axial images were obtained through the face without contrast, and sagittal and coronal reformats were performed. One of the following dose optimization techniques was utilized in the performance of this exam: Autom ated exposure control; adjustment of the mA and/or kV according to the patient's size; or use of an i terative reconstruction technique. Specific details can be referenced in the facility's radiology CT exam operational policy. CONTRAST: None. FINDINGS: CT BRAIN Brain: No intracranial hemorrhage, mass, or edema. Ventricles and sulci: Sulci are normal. Ventricular size and configuration is normal. Skull: Intact. CT FACE Osseous structures: There is a medially displaced fracture through the medial left orbit (image 57). There is poor dentition with numerous dental caries, and there are periapical lucencies around some o f the teeth, which can be seen with dental infection. Soft Tissues: There is significant gas in the soft tissues of the face, left greater than right. It t racks into the left data communications engineer space and deep to the left mandible. It also surrounds the left subman dibular gland and tracks as far medially and inferiorly as the superior thyroid cartilage on the left . There is mild calcification of the left carotid bifurcation. Orbits: There is gas within the left globe related to orbital fracture. Globe is intact. Orbital musc les are normal. Paranasal sinuses and mastoids: There is mild opacification of the left ethmoid sinus related to frac ture. Paranasal sinuses otherwise are clear. Mastoids are clear. No nasal septal deviation. IMPRESSION: 1. No acute intracranial abnormality. 2. Depressed left medial orbital fracture. 3. Significant gas in the soft tissues of the face, left greater than right, related to injury. 4. Poor dentition and numerous dental caries. Follow-up with a dentist is recommended. Report Dictated By: Diamante Matamoros at 07/04/2018 9:57 PM Report E-Signed By: Diamante Matamoros at 07/04/2018 10:08 PM WSN:[id number]
--- NOTE | 2018-07-04 22:11 | RADIOLOGY IMAGING REPORT ---
FACILITY: [facility] - [place] PATIENT NAME: Kim Price : 1975 MR: [id number] V: [id number] EXAM DATE: ORDERING PHYSICIAN: KALEIGH DE JESUS TECHNOLOGIST: [place] [facility] [place]: Kim Price : 1975 Visit/Account:[id number] Date of Sevice: 07/04/2018 HEAD W/O CONTRAST, FACIAL BONES W/O CONTRAST HISTORY: Fall with left orbital swelling. COMPARISON: None. CT cervical spine was performed concurrently. TECHNIQUE: Axial images were obtained from the skull base to the vertex without contrast. Sagittal an d coronal reformats were performed. Axial images were obtained through the face without contrast, and sagittal and coronal reformats were performed. One of the following dose optimization techniques was utilized in the performance of this exam: Autom ated exposure control; adjustment of the mA and/or kV according to the patient's size; or use of an i terative reconstruction technique. Specific details can be referenced in the facility's radiology CT exam operational policy. CONTRAST: None. FINDINGS: CT BRAIN Brain: No intracranial hemorrhage, mass, or edema. Ventricles and sulci: Sulci are normal. Ventricular size and configuration is normal. Skull: Intact. CT FACE Osseous structures: There is a medially displaced fracture through the medial left orbit (image 57). There is poor dentition with numerous dental caries, and there are periapical lucencies around some o f the teeth, which can be seen with dental infection. Soft Tissues: There is significant gas in the soft tissues of the face, left greater than right. It t racks into the left exterior door installer space and deep to the left mandible. It also surrounds the left subman dibular gland and tracks as far medially and inferiorly as the superior thyroid cartilage on the left . There is mild calcification of the left carotid bifurcation. Orbits: There is gas within the left globe related to orbital fracture. Globe is intact. Orbital musc les are normal. Paranasal sinuses and mastoids: There is mild opacification of the left ethmoid sinus related to frac ture. Paranasal sinuses otherwise are clear. Mastoids are clear. No nasal septal deviation. IMPRESSION: 1. No acute intracranial abnormality. 2. Depressed left medial orbital fracture. 3. Significant gas in the soft tissues of the face, left greater than right, related to injury. 4. Poor dentition and numerous dental caries. Follow-up with a dentist is recommended. Report Dictated By: Diamante Matamoros at 07/04/2018 9:57 PM Report E-Signed By: Diamante Matamoros at 07/04/2018 10:08 PM WSN:[id number]
--- NOTE | 2018-07-04 22:19 | RADIOLOGY IMAGING REPORT ---
FACILITY: [facility] PATIENT NAME: Kim Price : 1975 MR: [id number] V: [id number] EXAM DATE: ORDERING PHYSICIAN: KALEIGH DE JESUS TECHNOLOGIST: Location: [facility] Patient: Kim Price : 1975 Visit/Account:[id number] Date of Sevice: 07/04/2018 C-SPINE W/O CONTRAST HISTORY: Fall with left orbital swelling. COMPARISON: None. CT face and CT brain were performed concurrently. TECHNIQUE: Axial images were obtained from the skull base through the upper thoracic spine. Coronal a nd sagittal reformatted images were obtained from the axial source data. One of the following dose optimization techniques was utilized in the performance of this exam: Autom ated exposure control; adjustment of the mA and/or kV according to the patient's size; or use of an i terative reconstruction technique. Specific details can be referenced in the facility's radiology CT exam operational policy. CONTRAST: None. FINDINGS: Musculoskeletal/vertebra: No acute osseous abnormality. Vertebral body heights are maintained. There is reversal of the normal cervical lordosis that appears positional. There is mild multilevel degener ative change of the spine. Prevertebral soft tissues are within normal limits. The spinal canal is no rmal in caliber. Visualized upper chest: There is a 3 x 3 mm right upper lobe pulmonary nodule (image 119 series 3). T here is a partially visualized groundglass opacity in the right upper lobe on image 122. Measures 1.6 x 1.2 cm. Soft tissues: There is mild calcification at the origin of the left subclavian artery. There is mild calcification of the carotid bifurcations. There is significant gas in the superficial and deep soft tissues of the left side of the neck related to facial injury. IMPRESSION: 1. Degenerative changes, but no acute osseous abnormality of the cervical spine. 2. Significant gas in the soft tissues of the left side of the neck related to facial injury. 3. Right upper lobe 3 mm pulmonary nodule and partially visualized right upper lobe 1.4 cm average si ze groundglass opacity/nodule without solid component. Current Fleischner Society recommendations for subsolid nodules: - Single ground glass nodule greater than or equal to 6 mm: Noncontrast CT at 6-12 months to confirm persistence, then CT every 2 years until 5 years. Current Fleischner Society recommendations for incidental <6mm pulmonary nodule (average of long and short axis) on incomplete thoracic CT scan: No further investigation is recommended given the estimated low risk of malignancy. Marcella H, Victorino Martinez, Gordo J, et al. Guidelines for management of small pulmonary nodules detected on CT images: from the Fleischner society 2017. Report Dictated By: Diamante Matamoros at 07/04/2018 10:08 PM Report E-Signed By: Diamante Matamoros at 07/04/2018 10:15 PM WSN:[id number]
[2018-07-04] MEDS ORDERED: AMOX/CLAV 875 MG TAB PO ONE (22:30)
[2018-07-04] MEDS ORDERED: AMOX-559 PO (22:30)
--- NOTE | 2018-07-04 22:31 | ER Report ---
History and Physical Time Seen By MD: 20:43 Hx. of Stated Complaint: PT REPORTS HAVING LOW BS 2 DAYS AGO AND FALLING. PT CAME TO AND HAS SWOLLEN LEFT SIDE OF FACE. HPI/ROS CHIEF COMPLAINT: Fall, left facial injury HISTORY OF PRESENT ILLNESS: 42-year-old female brought in by EMS from home after a fall 2 days ago. She is complaining of left facial pain and swelling. Patient states she fell during hypoglycemic attack and struck her face. She was seen by the school psychology specialist earlier today who advised her to come to the ER for evaluation of facial fractures. Patient was brought in by EMS in a cervical collar. Patient denies nausea or vomiting to suggest head injury or concussion. She has significant left facial swelling. Patient denies any other injuries such as rib pain, chest wall pain, extremity pain. REVIEW OF SYSTEMS: Respiratory: No cough, no dyspnea. Cardiovascular: No chest pain, no palpitations. Gastrointestinal: No vomiting, no abdominal pain. Musculoskeletal: No back pain. Allergies: Coded Allergies: quinine (Verified Allergy, Severe, SOB, 07/05/18) Home Meds Active Scripts Amoxicillin/Pot Clav 875-125 Mg Tab (AUGMENTIN 875-125 TABLET) 1 Each Tablet, 1 TAB PO Q12H for infection, #14 TAB Prov:KALEIGH DE JESUS DO 07/04/18 Potassium Chloride (KLOR-CON M20) 20 Meq Tab.er.prt, 20 MEQ PO QDAY, #30 TAB 0 Refills Prov:DANGELO SAL MD 03/28/18 Reported Medications [place]-3 Fatty Acids/Fish Oil (FISH OIL 1,000 MG CAPSULE) 1 Each Capsule, 1 EACH PO DAILY, CAPSULE 06/26/18 Aspirin (ASPIR 81) 81 Mg Tablet.dr, 81 MG PO QDAY, TAB 06/26/18 Atorvastatin Calcium (LIPITOR) 40 Mg Tablet, 1 TAB PO QDAY, TAB 03/28/18 Metoprolol Succinate (TOPROL XL) 50 Mg Tab.er.24h, 2 TAB PO QDAY, TAB 05/19/16 Insulin Lispro 100 Un/Ml Pen (HUMALOG 3 ML PEN) 100 Unit/1 Ml Insuln.pen, 27 UNIT SQ ACHS, #1 3 Refills FOR GLUCOSE 150-200 GIVE 2 UNITS. FOR GLUCOSE 201-250 GIVE 4 UNITS. FOR GLUCOSE 251-300 GIVE 6 UNITS. FOR GLUCOSE 301-350 GIVE 8 UNITS. FOR GLUCOSE OVER 350 GIVE 10 UNITS. IF GLUCOSE UNDER 50, DRINK JUICE IF AWAKE OR CALL DOCTOR OR 911 IF NOT AWAKE. IF GLUCOSE OVER 400 GIVE 10 UNITS AND CALL DOCTOR. 04/17/14 Sertraline Hcl (ZOLOFT) 50 Mg Tablet, 50 MG PO QDAY 04/17/14 Lurasidone Hcl (LATUDA) 40 Mg Tablet, 60 MG PO QAM TAKE PER PEAK WELLNESS. TAKE WITH FOOD. 04/17/14 Lisinopril (LISINOPRIL) 20 Mg Tablet, 40 MG PO QDAY, #30 3 Refills 04/17/14 Insulin Glargine 100 Un/Ml Pen (LANTUS SOLOSTAR PEN) 100 Unit/1 Ml Insuln.pen, 42 UNIT SQ DAILY, #1 4 Refills 04/17/14 Discontinued Scripts Hydroxyzine Hcl (HYDROXYZINE HCL) 50 Mg Tablet, 50 MG PO QHS PRN for INSOMNIA, #30 TAB 0 Refills Prov:DANGELO SAL MD 03/28/18 Reviewed Nurses Notes: Yes Old Medical Records Reviewed: Yes Hx Smoking: Yes (/4PPD) Smoking Status: Current: Every Day Smoker Exposure to Second Hand Smoke?: No Hx Substance Use Disorder: No Hx Alcohol Use: No Constitutional Vital Sign - Last 24 Hours 07/04/18 07/04/18 07/04/18 07/04/18 20:43 20:44 21:08 21:12 Temp 99.2 Pulse 74 Resp 18 B/P (MAP) 178/92 (120) 178/92 140/53 (82) Pulse Ox 95 91 O2 Delivery Room Air 07/04/18 07/04/18 07/04/18 07/04/18 21:27 21:30 21:35 21:50 Pulse 62 60 61 B/P (MAP) 143/69 (93) Pulse Ox 93 93 94 Physical Exam Vital signs stable, afebrile, pulse ox normal General Appearance: The patient is alert, has no immediate need for airway protection and no current signs of toxicity. Palpation of the head and neck reveal no tenderness or trauma except to the left facial area. There is significant soft tissue swelling. The left orbit is closed. There is no tenderness on palpation of the cervical midline. HEENT: Pupils equal and round no injection. There is significant left facial swelling with edema and ecchymosis. TMs normal, oropharynx with advanced periodontal disease. There is no tenderness on palpation of the TMJs or the margin of the mandible. Respiratory: Chest is non tender, lungs are clear to auscultation. No chest wall tenderness Cardiac: regular rate and rhythm Gastrointestinal: Abdomen is soft and non tender, no masses, bowel sounds normal. Musculoskeletal: Neck: Neck is supple and non tender. Extremities have full range of motion and are non tender. Skin: No rashes or lesions. DIFFERENTIAL DIAGNOSIS: After history and physical exam differential diagnosis was considered for head injury including but not limited to concussion, skull fracture, intraparenchymal contusion, subarachnoid, subdural and epidural hematoma. Medical Decision Making EKG/Imaging Imaging Results: CT scan of the without contrast was obtained. The results of the study are HEAD W/O CONTRAST, FACIAL BONES W/O CONTRAST HISTORY: Fall with left orbital swelling. COMPARISON: None. CT cervical spine was performed concurrently. TECHNIQUE: Axial images were obtained from the skull base to the vertex without contrast. Sagittal and coronal reformats were performed. Axial images were obtained through the face without contrast, and sagittal and coronal reformats were performed. One of the following dose optimization techniques was utilized in the performance of this exam: Automated exposure control; adjustment of the mA and/or kV according to the patient's size; or use of an iterative reconstruction technique. Specific details can be referenced in the facility's radiology CT exam operational policy. CONTRAST: None. FINDINGS: CT BRAIN Brain: No intracranial hemorrhage, mass, or edema. Ventricles and sulci: Sulci are normal. Ventricular size and configuration is normal. Skull: Intact. CT FACE Osseous structures: There is a medially displaced fracture through the medial left orbit (image 57). There is poor dentition with numerous dental caries, and there are periapical lucencies around some of the teeth, which can be seen with dental infection. Soft Tissues: There is significant gas in the soft tissues of the face, left greater than right. It tracks into the left radiator core tester space and deep to the left mandible. It also surrounds the left submandibular gland and tracks as far medially and inferiorly as the superior thyroid cartilage on the left. There is mild calcification of the left carotid bifurcation. Orbits: There is gas within the left globe related to orbital fracture. Globe is intact. Orbital muscles are normal. Paranasal sinuses and mastoids: There is mild opacification of the left ethmoid sinus related to fracture. Paranasal sinuses otherwise are clear. Mastoids are clear. No nasal septal deviation. IMPRESSION: 1. No acute intracranial abnormality. 2. Depressed left medial orbital fracture. 3. Significant gas in the soft tissues of the face, left greater than right, related to injury. 4. Poor dentition and numerous dental caries. Follow-up with a dentist is recommended The study was read by the radiologist. I viewed the images myself on the PACS system. Results: CT scan of the cervical spine without contrast was obtained. The results of the study are C-SPINE W/O CONTRAST HISTORY: Fall with left orbital swelling. COMPARISON: None. CT face and CT brain were performed concurrently. TECHNIQUE: Axial images were obtained from the skull base through the upper thoracic spine. Coronal and sagittal reformatted images were obtained from the axial source data. One of the following dose optimization techniques was utilized in the performance of this exam: Automated exposure control; adjustment of the mA and/or kV according to the patient's size; or use of an iterative reconstruction technique. Specific details can be referenced in the facility's radiology CT exam operational policy. CONTRAST: None. FINDINGS: Musculoskeletal/vertebra: No acute osseous abnormality. Vertebral body heights are maintained. There is reversal of the normal cervical lordosis that appears positional. There is mild multilevel degenerative change of the spine. Prevertebral soft tissues are within normal limits. The spinal canal is normal in caliber. Visualized upper chest: There is a 3 x 3 mm right upper lobe pulmonary nodule ( image 119 series 3). There is a partially visualized groundglass opacity in the right upper lobe on image 122. Measures 1.6 x 1.2 cm. Soft tissues: There is mild calcification at the origin of the left subclavian artery. There is mild calcification of the carotid bifurcations. There is significant gas in the superficial and deep soft tissues of the left side of the neck related to facial injury. IMPRESSION: 1. Degenerative changes, but no acute osseous abnormality of the cervical spine. 2. Significant gas in the soft tissues of the left side of the neck related to facial injury. 3. Right upper lobe 3 mm pulmonary nodule and partially visualized right upper lobe 1.4 cm average size groundglass opacity/nodule without solid component. Current Fleischner Society recommendations for subsolid nodules: - Single ground glass nodule greater than or equal to 6 mm: Noncontrast CT at 6- 12 months to confirm persistence, then CT every 2 years until 5 years. The study was read by the radiologist. I viewed the images myself on the PACS system. ED Course/Re-evaluation ED Course Patient was admitted to an examination room. H&P was done. The differential diagnoses was considered. Patient with significant facial trauma from a syncopal episode secondary to hypoglycemia. 2 days ago. She was seen at the eye clinic and was advised to follow-up in the ER for evaluation of her facial injuries. Patient went home. She began to have increased eye pain. Called EMS to bring her in for evaluation. EMS checked her glucose which was 205. Patient had CAT scans of her facial bones, head and neck performed. She had significant facial fracture with air in her left cheek. She was covered with Augmentin for her dental inflammation and her facial fracture. She is advised to follow-up with ENT, Dr. Brennon Lopez. Decision to Disposition Date: Jul 04, 2018 Decision to Disposition Time: 22:27 Depart Departure Latest Vital Signs Vital Signs Date Time Temp Pulse Resp B/P (MAP) Pulse Ox O2 Delivery O2 Flow Rate FiO2 07/04/18 21:50 61 94 07/04/18 21:30 143/69 (93) 07/04/18 20:44 99.2 18 Room Air Impression: Primary Impression: Left orbit fracture Additional Impressions: Fall Hypoglycemia Left facial swelling Insulin dependent type 2 diabetes mellitus, uncontrolled Condition: Improved Disposition: HOME OR SELF-CARE Referrals: CATRACHITA ADAM MD (PCP) BRENNON LOPEZ JR, MD New Scripts Amoxicillin/Pot Clav 875-125 Mg Tab (AUGMENTIN 875-125 TABLET) 1 Each Tablet 1 TAB PO Q12H for infection, #14 TAB Prov: LIZAHIENParker Stout DO 07/04/18 Patient Instructions: Facial Fracture (ED) Additional Instructions: Follow-up with your primary care Dr. Crane as planned tomorrow Follow-up with Dr. Lopez ENT this week Follow-up with dentist within one week Problem Qualifiers Primary Impression: Left orbit fracture Encounter type: initial encounter Fracture type: open Qualified Codes: S02.82XB - Fracture of other specified skull and facial bones, left side, initial encounter for open fracture Additional Impressions: Fall Encounter type: initial encounter Qualified Codes: W19.XXXA - Unspecified fall, initial encounter KALEIGH DE JESUS DO Jul 04, 2018 22:31
== END 2018-07-04 22:37 | disposition home or self-care (01) ==
LOC: ER 20:58
DX: S02.82XB Fracture of other specified skull and facial bones, left side, initial encounter for open fracture (principal); F17.210 Nicotine dependence, cigarettes, uncomplicated; E11.649 Type 2 diabetes mellitus with hypoglycemia without coma; Z79.4 Long term (current) use of insulin
CPT/HCPCS: 70450; 70486; 72125; 99284

== ENCOUNTER → 2018-07-04 | Outpatient (CLI) | payer MEDICAID ==
[2014-04-14 10:50] VITALS: BMI 24.3
[~2018-07-04] MED LIST changes: +ASPI-1471 PO; +OMEG-11 PO
== END ==
LOC: AMB 20:21
PROVIDERS: ATTEND Nurse Practitioner
DX: M79.89 Other specified soft tissue disorders (principal)
CPT/HCPCS: A0425; A0429

== ENCOUNTER 2018-07-05 12:27 | Emergency (ER) | payer MEDICAID ==
[2014-04-14 10:50] VITALS: Wt 68.5 kg
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
[2018-07-05 13:30] VITALS: BP 143/66
== END 2018-07-05 13:57 | disposition home or self-care (01) ==
LOC: ER 12:43
DX: I10 Essential (primary) hypertension (principal)
CPT/HCPCS: 99281

== ENCOUNTER → 2018-07-05 | Outpatient (CLI) | payer MEDICAID ==
[2014-04-14 10:50] VITALS: BMI 24.3
== END ==
LOC: AMB 12:11
PROVIDERS: ATTEND Nurse Practitioner
DX: I10 Essential (primary) hypertension (principal); E11.9 Type 2 diabetes mellitus without complications
CPT/HCPCS: A0425; A0429

== ENCOUNTER 2018-08-17 08:43 | Emergency (ER) | payer MEDICAID ==
[2014-04-14 10:50] VITALS: Wt 67.6 kg
[~2018-08-17 08:43] MED LIST changes: +ASPIRIN 81 MG CHEW PO ONE; +NS(*) 0.9% 1000 ML BAG 1,000 ML IV ONE; -TRAZ50TA34 PO
--- NOTE | 2018-08-17 08:54 | ER Report ---
History and Physical Time Seen By MD: 08:51 HPI/ROS CHIEF COMPLAINT: Chest pain worse with inspiration HISTORY OF PRESENT ILLNESS: Patient is a 42-year-old female with a history of hypertension here with chest pain which is been constant since approximately 1800 last night. Patient reports having history of cardiac disease however is unable to verbalize what type of cardiac disease she has. Patient is afebrile, hypertensive. Patient reportedly had an oxygen saturation of 82% prompting EMS to place the patient on 6 L nasal cannula. Pain is described as sharp, stabbing, worse with deep inspiration, midsternal. REVIEW OF SYSTEMS: Constitutional: No fever, no chills. Eyes: No discharge. ENT: No sore throat. Cardiovascular: + mid sternal chest pain, no palpitations. Respiratory: No cough, no shortness of breath. Gastrointestinal: No abdominal pain, no vomiting. Genitourinary: No hematuria. Musculoskeletal: No back pain. Skin: No rashes. Neurological: No headache. Allergies: Coded Allergies: quinine (Verified Allergy, Severe, SOB, 08/17/18) Home Meds Active Scripts Potassium Chloride (KLOR-CON M20) 20 Meq Tab.er.prt, 20 MEQ PO QDAY, #30 TAB 0 Refills Prov:DANGELO SAL MD 03/28/18 Reported Medications [place]-3 Fatty Acids/Fish Oil (FISH OIL 1,000 MG CAPSULE) 1 Each Capsule, 1 EACH PO DAILY, CAPSULE 06/26/18 Aspirin (ASPIR 81) 81 Mg Tablet.dr, 81 MG PO QDAY, TAB 06/26/18 Atorvastatin Calcium (LIPITOR) 40 Mg Tablet, 1 TAB PO QDAY, TAB 03/28/18 Metoprolol Succinate (TOPROL XL) 50 Mg Tab.er.24h, 2 TAB PO QDAY, TAB 05/19/16 Insulin Lispro 100 Un/Ml Pen (HUMALOG 3 ML PEN) 100 Unit/1 Ml Insuln.pen, 27 UNIT SQ ACHS, #1 3 Refills FOR GLUCOSE 150-200 GIVE 2 UNITS. FOR GLUCOSE 201-250 GIVE 4 UNITS. FOR GLUCOSE 251-300 GIVE 6 UNITS. FOR GLUCOSE 301-350 GIVE 8 UNITS. FOR GLUCOSE OVER 350 GIVE 10 UNITS. IF GLUCOSE UNDER 50, DRINK JUICE IF AWAKE OR CALL DOCTOR OR 911 IF NOT AWAKE. IF GLUCOSE OVER 400 GIVE 10 UNITS AND CALL DOCTOR. 04/17/14 Sertraline Hcl (ZOLOFT) 50 Mg Tablet, 50 MG PO QDAY 04/17/14 Lurasidone Hcl (LATUDA) 40 Mg Tablet, 60 MG PO QAM TAKE PER PEAK WELLNESS. TAKE WITH FOOD. 04/17/14 Lisinopril (LISINOPRIL) 20 Mg Tablet, 40 MG PO QDAY, #30 3 Refills 04/17/14 Insulin Glargine 100 Un/Ml Pen (LANTUS SOLOSTAR PEN) 100 Unit/1 Ml Insuln.pen, 42 UNIT SQ DAILY, #1 4 Refills 04/17/14 Discontinued Scripts Amoxicillin/Pot Clav 875-125 Mg Tab (AUGMENTIN 875-125 TABLET) 1 Each Tablet, 1 TAB PO Q12H for infection, #14 TAB Prov:KALEIGH DE JESUS DO 07/04/18 Hx Smoking: Yes (10/12PPD) Smoking Status: Current: Every Day Smoker Exposure to Second Hand Smoke?: No Hx Substance Use Disorder: No Hx Alcohol Use: No Constitutional Vital Sign - Last 24 Hours 08/17/18 08/17/18 08/17/18 08/17/18 08:43 08:47 08:49 08:52 Temp 98.7 Pulse 88 79 Resp 14 18 B/P (MAP) 162/117 (132) 162/117 Pulse Ox 96 98 O2 Delivery Room Air Room Air O2 Flow Rate 6.0 08/17/18 08/17/18 08/17/18 08/17/18 09:06 09:13 09:32 09:35 Pulse 74 Resp 16 B/P (MAP) 157/95 (115) 171/101 (124) 171/95 (120) Pulse Ox 96 O2 Delivery Room Air 08/17/18 08/17/18 08/17/18 08/17/18 09:38 09:40 09:43 09:45 Pulse 78 Resp 14 B/P (MAP) 137/86 (103) 145/94 (111) 156/109 (125) Pulse Ox 96 08/17/18 08/17/18 08/17/18 08/17/18 09:50 10:00 10:15 10:19 Pulse 79 Resp 14 B/P (MAP) 142/80 (100) 153/93 (113) 147/101 (116) Pulse Ox 96 O2 Delivery Room Air Intake and Output 08/17/18 08/17/18 08/18/18 15:00 23:00 07:00 Intake Total 1000 ml Balance 1000 ml Physical Exam General Appearance: The patient is alert, has no immediate need for airway protection and no signs of toxicity. anxious appearing Eyes: Pupils equal and round no pallor or injection. ENT, Mouth: Mucous membranes are moist. Respiratory: There are no retractions, lungs are clear to auscultation. Cardiovascular: Regular rate and rhythm. Gastrointestinal: Abdomen is soft and non tender, no masses, bowel sounds normal. Neurological: No focal neuro deficits Skin: Warm and dry, no rashes. Musculoskeletal: Neck is supple non tender. Extremities are nontender, nonswollen and have full range of motion. DIFFERENTIAL DIAGNOSIS: After history and physical exam differential diagnosis was considered for chest pain including but not limited to myocardial ischemia, pericarditis pulmonary embolus, chest wall pain, pleural inflammation and pulmonary infectious causes. Medical Decision Making Data Points Result Diagram: 08/17/18 0917 08/17/18 0917 Laboratory Hematology Test 08/17/18 09:17 Red Blood Count 4.78 M/uL (4.17-5.56) Mean Corpuscular Volume 89.0 fL (80.0-96.0) Mean Corpuscular Hemoglobin 30.0 pg (26.0-33.0) Mean Corpuscular Hemoglobin Concent 33.8 g/dL (32.0-36.0) Red Cell Distribution Width 13.2 % (11.5-14.5) Mean Platelet Volume 7.6 fL (7.2-11.1) Neutrophils (%) (Auto) 49.3 % (39.4-72.5) Lymphocytes (%) (Auto) 40.1 % (17.6-49.6) Monocytes (%) (Auto) 8.1 % (4.1-12.4) Eosinophils (%) (Auto) 1.4 % (0.4-6.7) Basophils (%) (Auto) 1.1 % (0.3-1.4) Nucleated RBC Relative Count (auto) 0.0 /100WBC Neutrophils # (Auto) 2.4 K/uL (2.0-7.4) Lymphocytes # (Auto) 2.0 K/uL (1.3-3.6) Monocytes # (Auto) 0.4 K/uL (0.3-1.0) Eosinophils # (Auto) 0.1 K/uL (0.0-0.5) Basophils # (Auto) 0.1 K/uL (0.0-0.1) Nucleated RBC Absolute Count (auto) 0.00 K/uL Prothrombin Time 13.3 seconds (12.0-14.4) Prothromb Time International Ratio 1.01 Activated Partial Thromboplast Time 26 seconds (23-35) D-Dimer Quantitative (PE/DVT) < 0.27 ug/ml (0-0.50) Sodium Level 136 mmol/L (137-145) Potassium Level 3.3 mmol/L (3.5-5.0) Chloride Level 101 mmol/L (98-107) Carbon Dioxide Level 25 mmol/L (22-31) Blood Urea Nitrogen 16 mg/dl (7-18) Creatinine 0.80 mg/dl (0.52-1.04) Glomerular Filtration Rate Calc > 60.0 Random Glucose 236 mg/dl (75-110) Calcium Level 9.4 mg/dl (8.4-10.2) Total Bilirubin 0.7 mg/dl (0.2-1.3) Aspartate Amino Transf (AST/SGOT) 31 U/L (0-35) Alanine Aminotransferase (ALT/SGPT) 41 U/L (0-56) Alkaline Phosphatase 96 U/L (0-126) Troponin I < 0.012 ng/ml B-Type Natriuretic Peptide 26 pg/ml (0-100) Total Protein 7.7 g/dl (6.3-8.2) Albumin 4.2 g/dl (3.5-5.0) Human Chorionic Gonadotropin, Qual Negative (NEGATIVE) Chemistry Test 08/17/18 09:17 White Blood Count 4.9 k/uL (4.5-11.0) Red Blood Count 4.78 M/uL (4.17-5.56) Hemoglobin 14.4 g/dL (12.0-16.0) Hematocrit 42.5 % (34.0-47.0) Mean Corpuscular Volume 89.0 fL (80.0-96.0) Mean Corpuscular Hemoglobin 30.0 pg (26.0-33.0) Mean Corpuscular Hemoglobin Concent 33.8 g/dL (32.0-36.0) Red Cell Distribution Width 13.2 % (11.5-14.5) Platelet Count 272 K/uL (150-450) Mean Platelet Volume 7.6 fL (7.2-11.1) Neutrophils (%) (Auto) 49.3 % (39.4-72.5) Lymphocytes (%) (Auto) 40.1 % (17.6-49.6) Monocytes (%) (Auto) 8.1 % (4.1-12.4) Eosinophils (%) (Auto) 1.4 % (0.4-6.7) Basophils (%) (Auto) 1.1 % (0.3-1.4) Nucleated RBC Relative Count (auto) 0.0 /100WBC Neutrophils # (Auto) 2.4 K/uL (2.0-7.4) Lymphocytes # (Auto) 2.0 K/uL (1.3-3.6) Monocytes # (Auto) 0.4 K/uL (0.3-1.0) Eosinophils # (Auto) 0.1 K/uL (0.0-0.5) Basophils # (Auto) 0.1 K/uL (0.0-0.1) Nucleated RBC Absolute Count (auto) 0.00 K/uL Prothrombin Time 13.3 seconds (12.0-14.4) Prothromb Time International Ratio 1.01 Activated Partial Thromboplast Time 26 seconds (23-35) D-Dimer Quantitative (PE/DVT) < 0.27 ug/ml (0-0.50) Glomerular Filtration Rate Calc > 60.0 Calcium Level 9.4 mg/dl (8.4-10.2) Total Bilirubin 0.7 mg/dl (0.2-1.3) Aspartate Amino Transf (AST/SGOT) 31 U/L (0-35) Alanine Aminotransferase (ALT/SGPT) 41 U/L (0-56) Alkaline Phosphatase 96 U/L (0-126) Troponin I < 0.012 ng/ml B-Type Natriuretic Peptide 26 pg/ml (0-100) Total Protein 7.7 g/dl (6.3-8.2) Albumin 4.2 g/dl (3.5-5.0) Human Chorionic Gonadotropin, Qual Negative (NEGATIVE) Coagulation Test 08/17/18 09:17 Prothrombin Time 13.3 seconds Prothromb Time International Ratio 1.01 Activated Partial Thromboplast Time 26 seconds D-Dimer Quantitative (PE/DVT) < 0.27 ug/ml EKG/Imaging EKG Interpretation Test Reason : CP Blood Pressure : / mmHG Vent. Rate : 079 BPM Atrial Rate : 079 BPM P-R Int : 130 ms QRS Dur : 082 ms QT Int : 398 ms P-R-T Axes : 056 003 040 degrees QTc Int : 456 ms Sinus rhythm Possible Left atrial enlargement Borderline ECG No previous ECGs available Confirmed by COMPA BRASHER ([id number]) on 08/17/2018 9:11:20 PM Referred By: MYRANDA Confirmed By:COMPA BRASHER Monitor Interpretation: Normal Sinus Rhythm Imaging Location: [facility] Patient: Kim Price : 1975 Visit/Account:[id number] Date of Sevice: 08/17/2018 CHEST SINGLE AP INDICATION: Chest Pain COMPARISON: 01/23/2018 FINDINGS: Heart size within normal limits. There is no focal infiltrate or lobar consolidation. There is no pneumothorax or pleural effusion. IMPRESSION: 1. No acute cardiopulmonary process. ED Course/Re-evaluation ED Course Patient is a 42-year-old female here with complaints of chest pain which has been ongoing since last night. Patient reports that the pain has been constant, unrelenting. Troponin was found to be negative and since the pain had been constant for greater than 4 hours, likelihood of myocardial infarction ischemia was low. Patient also described the pain is worse with deep inspiration so a d- dimer was completed and was found to be negative again pulmonary embolism less likely etiology of the patient's pain. Patient was given nitroglycerin, Toradol, fluid bolus for symptom management with significant relief of symptoms. Labs were otherwise unremarkable. Chest x-ray showed no acute findings of consolidation, edema or pneumothorax. Patient was updated regarding these findings and voiced understanding. Patient was stable at time of discharge and advised to follow-up with her PCP in the next couple days and consider cardiology follow-up for further evaluation of cardiac etiology. Decision to Disposition Date: Aug 17, 2018 Decision to Disposition Time: 11:00 Depart Departure Latest Vital Signs Vital Signs Date Time Temp Pulse Resp B/P (MAP) Pulse Ox O2 Delivery O2 Flow Rate FiO2 08/17/18 10:19 79 14 96 Room Air 08/17/18 10:15 147/101 (116) 08/17/18 08:52 98.7 08/17/18 08:47 6.0 Impression: Primary Impression: Chest pain Condition: Improved Disposition: HOME OR SELF-CARE Referrals: CATRACHITA ADAM MD (PCP) Patient Instructions: Chest Pain (DC) Additional Instructions: Please follow up closely with your family doctor. Please follow up with cardiology in the next week to discuss possible need for a stress test or further workup. Please return promptly if you develop recurrent chest pain, shortness breath, fevers, nausea, vomiting, abdominal pain. RAMONA WHITMORE DO Aug 17, 2018 08:54
--- NOTE | 2018-08-17 08:57 | EKG ---
FACILITY: [facility] PATIENT NAME: IGNACIA BENAVIDES : [id number] MR: [id number] V: [id number] EXAM DATE: ORDERING PHYSICIAN: RAMONA WHITMORE TECHNOLOGIST: CALEB Test Reason : CP Blood Pressure : / mmHG Vent. Rate : 079 BPM Atrial Rate : 079 BPM P-R Int : 130 ms QRS Dur : 082 ms QT Int : 398 ms P-R-T Axes : 056 003 040 degrees QTc Int : 456 ms Sinus rhythm Possible Left atrial enlargement Borderline ECG No previous ECGs available Confirmed by COMPA BRASHER ([id number]) on 08/17/2018 9:11:20 PM Referred By: MYRANDA Confirmed By:COMPA BRASHER
[2018-08-17 09:24] LABS: PLATELET COUNT, AUTOMATED 272 K/uL (150-450)
[2018-08-17] MEDS: NITROGLYCERIN 0.4 MG SUBL SL SCH ×3 (09:32→09:45)
[2018-08-17 09:37] LABS: INR 1.01
[2018-08-17] MEDS ORDERED: KETOROLAC 30 MG/ML VIAL IVP ONE (10:00)
--- NOTE | 2018-08-17 10:04 | RADIOLOGY IMAGING REPORT ---
FACILITY: [facility] - [place] PATIENT NAME: Kim Price : 1975 MR: [id number] V: [id number] EXAM DATE: ORDERING PHYSICIAN: RAMONA WHITMORE TECHNOLOGIST: [place] [facility] [place] : 1975 Visit/Account:[id number] Date of Sevice: 08/17/2018 CHEST SINGLE AP INDICATION: Chest Pain COMPARISON: 01/23/2018 FINDINGS: Heart size within normal limits. There is no focal infiltrate or lobar consolidation. There is no pneumothorax or pleural effusion. IMPRESSION: 1. No acute cardiopulmonary process. Report Dictated By: Adis Alanis at 08/17/2018 9:59 AM Report E-Signed By: Adis Alanis at 08/17/2018 10:00 AM WSN:[id number]
[2018-08-17 10:15] VITALS: BP 147/101
== END 2018-08-17 11:16 | disposition home or self-care (01) ==
LOC: ER 08:46
DX: R07.9 Chest pain, unspecified (principal)
CPT/HCPCS: 36415; 71045; 83880; 84484; 84703; 85025; 85379; 85610; 85730; 93005; 96361; 96374; 99284; J1885; J7030; 82040; 82247; 82310; 82374; 82435; 82565; 82947; 84075; 84132; 84155; 84295; 84450; 84460; 84520

== ENCOUNTER → 2018-08-17 | Outpatient (CLI) | payer MEDICAID ==
[2014-04-14 10:50] VITALS: BMI 24.3
[~2018-08-17] MED LIST changes: +TRAZ50TA34 PO
== END ==
LOC: AMB 08:22
PROVIDERS: ATTEND Nurse Practitioner
DX: R07.9 Chest pain, unspecified (principal); M54.9 Dorsalgia, unspecified; M79.602 Pain in left arm
CPT/HCPCS: A0425; A0427

== ENCOUNTER 2018-08-27 10:06 | Emergency (ER) | payer MEDICAID ==
[2014-04-14 10:50] VITALS: Wt 72.6 kg
[~2018-08-27 10:06] MED LIST changes: -ASPIRIN 81 MG CHEW PO ONE; -NS(*) 0.9% 1000 ML BAG 1,000 ML IV ONE
[2018-08-27] MEDS ORDERED: TRAZ50TA34 PO (10:26)
[2018-08-27] MEDS ORDERED: INSU100I30 SQ (10:27)
[2018-08-27] MEDS ORDERED: NS(*) 0.9% 1000 ML BAG 1,000 ML IV ONE ×2 (10:55→13:30)
[2018-08-27] MEDS ORDERED: MORPHINE 4 MG/ML SDV IVP ONE (10:55)
--- NOTE | 2018-08-27 10:58 | ER Report ---
History and Physical Time Seen By MD: 10:50 Hx. of Stated Complaint: PT HAS NUMBNESS IN HANDS. STATES SHE LOST HER GLUCOMETER. DOES NOT KNOW HER BS CURRENTLY, DOESNT KNOW IF SHE FEELS HIGH OR LOW. HPI/ROS CHIEF COMPLAINT: myalgias, tingling in fingers, intermittent cp with occ cough HISTORY OF PRESENT ILLNESS: 42 yr old diabetic on insulin has run out of her lantus and has not yet picked it up, presents with myalgias, occ cough, intermittent cp worse x 2- 3 d. Pt also c/o low grade fevers, chills. + nausea, no vomiting. No swelling in legs, mild abd pain. Pt has had these symptoms previously and states this is what happens when her glucose is either low or hi. She has not checked at home b/c she has run out of strips. REVIEW OF SYSTEMS: Constitutional: chills Eyes: no discharge ENT: No sore throat. Cardiovascular: above Respiratory: above, no sore throat Gastrointestinal: above Genitourinary: no dysuria Musculoskeletal: myalgias Skin: No rashes. Neurological: mild martel Remainder of the 14 system rev: Yes Allergies: Coded Allergies: quinine (Verified Allergy, Severe, SOB, 08/17/18) Home Meds Active Scripts Potassium Chloride (KLOR-CON M20) 20 Meq Tab.er.prt, 20 MEQ PO QDAY, #30 TAB 0 Refills Prov:DANGELO SAL MD 03/28/18 Reported Medications Insulin Glargine 100 Un/Ml Pen (LANTUS SOLOSTAR PEN) 100 Unit/1 Ml Insuln.pen, 60 UNIT SQ DAILY, PEN 08/27/18 Trazodone Hcl (TRAZODONE HCL) 50 Mg Tablet, 50 MG PO QHS 08/27/18 [place]-3 Fatty Acids/Fish Oil (FISH OIL 1,000 MG CAPSULE) 1 Each Capsule, 1 EACH PO DAILY, CAPSULE 06/26/18 Aspirin (ASPIR 81) 81 Mg Tablet.dr, 81 MG PO QDAY, TAB 06/26/18 Atorvastatin Calcium (LIPITOR) 40 Mg Tablet, 1 TAB PO QDAY, TAB 03/28/18 Metoprolol Succinate (TOPROL XL) 50 Mg Tab.er.24h, 2 TAB PO QDAY, TAB 05/19/16 Insulin Lispro 100 Un/Ml Pen (HUMALOG 3 ML PEN) 100 Unit/1 Ml Insuln.pen, 27 UNIT SQ ACHS, #1 3 Refills FOR GLUCOSE 150-200 GIVE 2 UNITS. FOR GLUCOSE 201-250 GIVE 4 UNITS. FOR GLUCOSE 251-300 GIVE 6 UNITS. FOR GLUCOSE 301-350 GIVE 8 UNITS. FOR GLUCOSE OVER 350 GIVE 10 UNITS. IF GLUCOSE UNDER 50, DRINK JUICE IF AWAKE OR CALL DOCTOR OR 911 IF NOT AWAKE. IF GLUCOSE OVER 400 GIVE 10 UNITS AND CALL DOCTOR. 04/17/14 Sertraline Hcl (ZOLOFT) 50 Mg Tablet, 50 MG PO QDAY 04/17/14 Lurasidone Hcl (LATUDA) 40 Mg Tablet, 60 MG PO QAM TAKE PER PEAK WELLNESS. TAKE WITH FOOD. 04/17/14 Lisinopril (LISINOPRIL) 20 Mg Tablet, 40 MG PO QDAY, #30 3 Refills 04/17/14 Discontinued Reported Medications Insulin Glargine 100 Un/Ml Pen (LANTUS SOLOSTAR PEN) 100 Unit/1 Ml Insuln.pen, 42 UNIT SQ DAILY, #1 4 Refills 04/17/14 Reviewed Nurses Notes: Yes Old Medical Records Reviewed: Yes Hx Smoking: Yes () Smoking Status: Current: Every Day Smoker Exposure to Second Hand Smoke?: No Hx Substance Use Disorder: No Hx Alcohol Use: No Constitutional Vital Sign - Last 24 Hours 08/27/18 08/27/18 08/27/18 08/27/18 10:15 10:16 10:30 10:36 Temp 99.5 Pulse 92 77 Resp 18 13 B/P (MAP) 153/102 (119) 153/102 160/93 (115) Pulse Ox 95 94 O2 Delivery Room Air 08/27/18 08/27/18 08/27/18 08/27/18 11:36 12:00 12:01 13:00 Pulse 80 80 84 Resp 14 14 B/P (MAP) 182/169 (173) Pulse Ox 98 97 08/27/18 08/27/18 08/27/18 08/27/18 13:05 13:25 13:30 13:35 Pulse 71 86 Resp 19 27 B/P (MAP) 154/93 (113) 166/97 (120) Pulse Ox 97 08/27/18 08/27/18 14:05 14:35 Pulse 74 83 Resp 14 20 Pulse Ox 98 Intake and Output 08/27/18 08/27/18 08/28/18 15:00 23:00 07:00 Intake Total 1000 ml 800 ml Balance 1000 ml 800 ml Physical Exam General Appearance: The patient is alert, has no immediate need for airway protection and no signs of toxicity. Eyes: Pupils equal and round no pallor or injection. ENT, Mouth: Mucous membranes are moist. Respiratory: There are no retractions, lungs are clear to auscultation. Cardiovascular: Regular rate and rhythm. Gastrointestinal: Abdomen is soft and non tender, no masses, bowel sounds normal. Neurological: alert, moves all extremities Skin: Warm and dry, no rashes. Musculoskeletal: Neck is supple non tender. Extremities are nontender, nonswollen and have full range of motion. DIFFERENTIAL DIAGNOSIS: After history and physical exam differential diagnosis was considered for sepsis, acs, pe, electrolyte abnormality, dka, hypoglycemia, or other emergent etiology. Medical Decision Making Data Points Result Diagram: 08/27/18 1054 08/27/18 1054 Laboratory Hematology Test 08/27/18 10:54 08/27/18 11:05 08/27/18 11:32 08/27/18 12:48 Red Blood Count 4.92 M/uL (4.17-5.56) Mean Corpuscular Volume 88.9 fL (80.0-96.0) Mean Corpuscular Hemoglobin 30.1 pg (26.0-33.0) Mean Corpuscular Hemoglobin Concent 33.9 g/dL (32.0-36.0) Red Cell Distribution Width 13.6 % (11.5-14.5) Mean Platelet Volume 7.5 fL (7.2-11.1) Neutrophils (%) (Auto) 56.5 % (39.4-72.5) Lymphocytes (%) (Auto) 31.4 % (17.6-49.6) Monocytes (%) (Auto) 9.7 % (4.1-12.4) Eosinophils (%) (Auto) 1.5 % (0.4-6.7) Basophils (%) (Auto) 0.9 % (0.3-1.4) Nucleated RBC Relative Count (auto) 0.0 /100WBC Neutrophils # (Auto) 2.6 K/uL (2.0-7.4) Lymphocytes # (Auto) 1.5 K/uL (1.3-3.6) Monocytes # (Auto) 0.5 K/uL (0.3-1.0) Eosinophils # (Auto) 0.1 K/uL (0.0-0.5) Basophils # (Auto) 0.0 K/uL (0.0-0.1) Nucleated RBC Absolute Count (auto) 0.00 K/uL Sodium Level 135 mmol/L (137-145) Potassium Level 4.0 mmol/L (3.5-5.0) Chloride Level 99 mmol/L (98-107) Carbon Dioxide Level 26 mmol/L (22-31) Blood Urea Nitrogen 17 mg/dl (7-18) Creatinine 0.90 mg/dl (0.52-1.04) Glomerular Filtration Rate Calc > 60.0 Random Glucose 290 mg/dl (75-110) Calcium Level 9.2 mg/dl (8.4-10.2) Phosphorus Level 4.3 mg/dl (2.5-4.5) Magnesium Level 1.9 mg/dl (1.7-2.2) Total Bilirubin 0.8 mg/dl (0.2-1.3) Aspartate Amino Transf (AST/SGOT) 34 U/L (0-35) Alanine Aminotransferase (ALT/SGPT) 35 U/L (0-56) Alkaline Phosphatase 86 U/L (0-126) Troponin I < 0.012 ng/ml Total Protein 7.7 g/dl (6.3-8.2) Albumin 4.1 g/dl (3.5-5.0) Urine Color Straw Urine Clarity Clear Urine pH 5.0 pH (4.8-9.5) Urine Specific Park 1.008 Urine Protein Negative mg/dL (NEGATIVE) Urine Glucose (UA) 500 mg/dL (NEGATIVE) Urine Ketones Negative mg/dL (NEGATIVE) Urine Blood Negative (NEGATIVE) Urine Nitrite Negative (NEGATIVE) Urine Bilirubin Negative (NEGATIVE) Urine Urobilinogen Negative mg/dL (0.2-1.9) Urine Leukocyte Esterase Negative (NEGATIVE) Urine RBC None /HPF (0-2/HPF) Urine WBC 2 /HPF (0-5/HPF) Urine Squamous Epithelial Cells Many /LPF (</=FEW) Urine Bacteria Negative /HPF (NONE-FEW) Urine Mucus None /HPF (NONE-FEW) Blood Gas Patient Temperature Unknown DEGREES Venous Blood pH 7.39 (7.31-7.41) Venous Blood Partial Pressure CO2 41 mmHg Venous Blood Partial Pressure O2 37 mmHg Venous Blood HCO3 25 mmol/L Venous Blood Oxygen Saturation 70 % Venous Blood Base Excess 0 mmol/L Oxygen Liters/Minute Unknown Test 08/27/18 13:38 Whole Blood Glucose 172 mg/DL (75-110) Chemistry Test 08/27/18 10:54 08/27/18 11:05 08/27/18 11:32 08/27/18 12:48 White Blood Count 4.7 k/uL (4.5-11.0) Red Blood Count 4.92 M/uL (4.17-5.56) Hemoglobin 14.8 g/dL (12.0-16.0) Hematocrit 43.7 % (34.0-47.0) Mean Corpuscular Volume 88.9 fL (80.0-96.0) Mean Corpuscular Hemoglobin 30.1 pg (26.0-33.0) Mean Corpuscular Hemoglobin Concent 33.9 g/dL (32.0-36.0) Red Cell Distribution Width 13.6 % (11.5-14.5) Platelet Count 261 K/uL (150-450) Mean Platelet Volume 7.5 fL (7.2-11.1) Neutrophils (%) (Auto) 56.5 % (39.4-72.5) Lymphocytes (%) (Auto) 31.4 % (17.6-49.6) Monocytes (%) (Auto) 9.7 % (4.1-12.4) Eosinophils (%) (Auto) 1.5 % (0.4-6.7) Basophils (%) (Auto) 0.9 % (0.3-1.4) Nucleated RBC Relative Count (auto) 0.0 /100WBC Neutrophils # (Auto) 2.6 K/uL (2.0-7.4) Lymphocytes # (Auto) 1.5 K/uL (1.3-3.6) Monocytes # (Auto) 0.5 K/uL (0.3-1.0) Eosinophils # (Auto) 0.1 K/uL (0.0-0.5) Basophils # (Auto) 0.0 K/uL (0.0-0.1) Nucleated RBC Absolute Count (auto) 0.00 K/uL Glomerular Filtration Rate Calc > 60.0 Calcium Level 9.2 mg/dl (8.4-10.2) Phosphorus Level 4.3 mg/dl (2.5-4.5) Magnesium Level 1.9 mg/dl (1.7-2.2) Total Bilirubin 0.8 mg/dl (0.2-1.3) Aspartate Amino Transf (AST/SGOT) 34 U/L (0-35) Alanine Aminotransferase (ALT/SGPT) 35 U/L (0-56) Alkaline Phosphatase 86 U/L (0-126) Troponin I < 0.012 ng/ml Total Protein 7.7 g/dl (6.3-8.2) Albumin 4.1 g/dl (3.5-5.0) Urine Color Straw Urine Clarity Clear Urine pH 5.0 pH (4.8-9.5) Urine Specific [place] 1.008 Urine Protein Negative mg/dL (NEGATIVE) Urine Glucose (UA) 500 mg/dL (NEGATIVE) Urine Ketones Negative mg/dL (NEGATIVE) Urine Blood Negative (NEGATIVE) Urine Nitrite Negative (NEGATIVE) Urine Bilirubin Negative (NEGATIVE) Urine Urobilinogen Negative mg/dL (0.2-1.9) Urine Leukocyte Esterase Negative (NEGATIVE) Urine RBC None /HPF (0-2/HPF) Urine WBC 2 /HPF (0-5/HPF) Urine Squamous Epithelial Cells Many /LPF (</=FEW) Urine Bacteria Negative /HPF (NONE-FEW) Urine Mucus None /HPF (NONE-FEW) Blood Gas Patient Temperature Unknown DEGREES Venous Blood pH 7.39 (7.31-7.41) Venous Blood Partial Pressure CO2 41 mmHg Venous Blood Partial Pressure O2 37 mmHg Venous Blood HCO3 25 mmol/L Venous Blood Oxygen Saturation 70 % Venous Blood Base Excess 0 mmol/L Oxygen Liters/Minute Unknown Test 08/27/18 13:38 Whole Blood Glucose 172 mg/DL (75-110) Urinalysis Test 08/27/18 11:05 Urine Color Straw Urine Clarity Clear Urine pH 5.0 pH (4.8-9.5) Urine Specific [place] 1.008 Urine Protein Negative mg/dL (NEGATIVE) Urine Glucose (UA) 500 mg/dL (NEGATIVE) Urine Ketones Negative mg/dL (NEGATIVE) Urine Blood Negative (NEGATIVE) Urine Nitrite Negative (NEGATIVE) Urine Bilirubin Negative (NEGATIVE) Urine Urobilinogen Negative mg/dL (0.2-1.9) Urine Leukocyte Esterase Negative (NEGATIVE) Urine RBC None /HPF (0-2/HPF) Urine WBC 2 /HPF (0-5/HPF) Urine Squamous Epithelial Cells Many /LPF (</=FEW) Urine Bacteria Negative /HPF (NONE-FEW) Urine Mucus None /HPF (NONE-FEW) EKG/Imaging EKG Interpretation 12 lead EKG: Rhythm: normal sinus rhythm Prue: normal QRS: normal ST segments: normal normal dielectric tester Interpretation: Normal Sinus Rhythm ED Course/Re-evaluation ED Course Pt presents with nonspecific symptoms that she relates to hyperglycemia; she has run out of her insulin/lantus and has rx but has not picked it up. She also c/o chest pain, though this is atypical, intermittent, assoc with occ cough. After IVF and ed eval, pt feels sig improved; low posttest prob for acs, pe, sepsis/focal bact infection, severe electrolyte abnormality or other emergent etiology of symptoms. 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 Decision to Disposition Date: Aug 27, 2018 Decision to Disposition Time: 14:45 Depart Departure Latest Vital Signs Vital Signs Date Time Temp Pulse Resp B/P (MAP) Pulse Ox O2 Delivery O2 Flow Rate FiO2 08/27/18 14:35 83 20 08/27/18 14:05 98 08/27/18 13:30 166/97 (120) 08/27/18 10:16 99.5 Room Air Impression: Primary Impression: Myalgia Additional Impression: Hyperglycemia Condition: Improved Disposition: HOME OR SELF-CARE Patient Instructions: Diabetic Hyperglycemia (ED) Additional Instructions: Please return for new or concerning chest pain, fevers, or other concerns. Problem Qualifiers DEIRDRE TORRES MD Aug 27, 2018 10:58
--- NOTE | 2018-08-27 11:06 | EKG ---
FACILITY: [facility] - [place] PATIENT NAME: IGNACIA BENAVIDES : [id number] MR: [id number] V: [id number] EXAM DATE: ORDERING PHYSICIAN: DEIRDRE TORRES TECHNOLOGIST: ANISH Gallagher Reason : CP Blood Pressure : / mmHG Vent. Rate : 071 BPM Atrial Rate : 071 BPM P-R Int : 132 ms QRS Dur : 082 ms QT Int : 396 ms P-R-T Axes : 054 -10 035 degrees QTc Int : 430 ms Normal sinus rhythm Normal ECG When compared with ECG of 17-AUG-2018 08:50, No significant change was found Confirmed by Larry Pringle ([id number]) on 08/27/2018 8:14:05 PM Referred By: BRIAN Confirmed By:Larry Ortiz
[2018-08-27 11:08] LABS: PLATELET COUNT, AUTOMATED 261 K/uL (150-450)
--- NOTE | 2018-08-27 12:26 | RADIOLOGY IMAGING REPORT ---
FACILITY: [facility] PATIENT NAME: Kim Price : 1975 MR: [id number] V: [id number] EXAM DATE: ORDERING PHYSICIAN: DEIRDRE TORRES TECHNOLOGIST: Location: [facility] [place] Patient: Kim Price : 1975 Visit/Account:[id number] Date of Sevice: 08/27/2018 CHEST SINGLE AP INDICATION: shortness of breath COMPARISON: 08/17/2018 FINDINGS: Heart size within normal limits. There is no focal infiltrate or lobar consolidation. There is no pneumothorax or pleural effusion. IMPRESSION: 1. No acute cardiopulmonary process. Report Dictated By: Adis Alanis at 08/27/2018 12:21 PM Report E-Signed By: Adis Alanis at 08/27/2018 12:22 PM WSN:[id number]
[2018-08-27 13:30] VITALS: BP 166/97
[2018-09-20] MEDS ORDERED: AMLO-111 PO (10:28)
== END 2018-08-27 15:09 | disposition home or self-care (01) ==
LOC: ER 10:43
DX: M79.18 Myalgia, other site (principal); E11.65 Type 2 diabetes mellitus with hyperglycemia; F17.210 Nicotine dependence, cigarettes, uncomplicated; R07.9 Chest pain, unspecified
CPT/HCPCS: 36416; 71045; 81001; 82330; 82803; 82948; 83735; 84100; 84484; 85025; 93005; 96361; 96374; 99284; J2270; J7030; 82040; 82247; 82310; 82374; 82435; 82565; 82947; 84075; 84132; 84155; 84295; 84450; 84460; 84520

== ENCOUNTER → 2018-11-21 | Outpatient (CLI) | payer MEDICAID ==
[2014-04-14 10:50] VITALS: BMI 24.3
[~2018-11-21] MED LIST changes: +AMLO-125 PO; +TRAZ50TA34 PO
--- NOTE | 2018-11-28 16:43 | RADIOLOGY IMAGING REPORT ---
FACILITY: [facility] - [place] PATIENT NAME: IGNACIA BENAVIDES : [id number] MR: [id number] V: [id number] EXAM DATE: [id number] ORDERING PHYSICIAN: ANTONIO WOODARD TECHNOLOGIST: Alpa Dyer PROCEDURE:BILATERAL DIGITAL SCREENING MAMMOGRAM WITH CAD ASSISTED INTERPRETATION & 3D TOMOSYNTHESIS COMPARISON:None. INDICATIONS:SCREENING Scattered fibroglandular densities are present in both breasts. A few small benign appearing nodularities are scattered in both breasts. DIAGNOSTIC CATEGORY 2--BENIGN FINDING. RECOMMENDATIONS: ROUTINE MAMMOGRAM AND CLINICAL EVALUATION IN 1Yr. IMPRESSION: BIRADS 2: Benign finding. Dictated by: Stevenson Berry M.D. on 11/23/2018 at 8:28 Transcribed by: SHYANN on 11/23/2018 at 9:42 Approved by: Richa Archibald M.D. on 11/28/2018 at 16:43 [facility]
== END ==
LOC: MAMO 01:17
PROVIDERS: ATTEND Family Medicine
DX: Z12.31 Encounter for screening mammogram for malignant neoplasm of breast (principal)
CPT/HCPCS: 77063; 77067

== ENCOUNTER 2018-12-02 20:04 | Emergency (ER) | payer MEDICAID ==
[2014-04-14 10:50] VITALS: Wt 72.6 kg
--- NOTE | 2018-12-02 20:15 | ER Report ---
History and Physical Time Seen By MD: 20:15 HPI/ROS CHIEF COMPLAINT: Left hip pain HISTORY OF PRESENT ILLNESS: This is a 43-year-old female. She had sudden onset of left hip pain. She was sitting on the couch when this happened tonight. No injuries. Has had hip pain like this in the past. Is on the lateral side of the hip. Worsens with any movement. Denies any abdominal pain. She does have chronic constipation but denies any problems with this. Normal urination without dysuria. No pain in her low back or coccyx area this time. She has not tried taking any medicine to help the pain. Denies any fevers or chills. Has normal sensation in the left leg. Allergies: Coded Allergies: quinine (Verified Allergy, Severe, SOB, 08/17/18) Home Meds Active Scripts Prednisone (PREDNISONE) 20 Mg Tablet, 40 MG PO QDAY for 4 Days, #8 TAB 0 Refills Prov:DANGELO SAL MD 12/02/18 Reported Medications Amlodipine Besylate (AMLODIPINE BESYLATE) 5 Mg Tablet, 1 TAB PO QDAY, TAB 09/20/18 Trazodone Hcl (TRAZODONE HCL) 50 Mg Tablet, 50 MG PO QHS 08/27/18 Aspirin (ASPIR 81) 81 Mg Tablet.dr, 81 MG PO QDAY, TAB 06/26/18 Atorvastatin Calcium (LIPITOR) 40 Mg Tablet, 1 TAB PO QDAY, TAB 03/28/18 Metoprolol Succinate (TOPROL XL) 50 Mg Tab.er.24h, 2 TAB PO QDAY, TAB 05/19/16 Insulin Lispro 100 Un/Ml Pen (HUMALOG 3 ML PEN) 100 Unit/1 Ml Insuln.pen, 27 UNIT SQ ACHS, #1 3 Refills FOR GLUCOSE 150-200 GIVE 2 UNITS. FOR GLUCOSE 201-250 GIVE 4 UNITS. FOR GLUCOSE 251-300 GIVE 6 UNITS. FOR GLUCOSE 301-350 GIVE 8 UNITS. FOR GLUCOSE OVER 350 GIVE 10 UNITS. IF GLUCOSE UNDER 50, DRINK JUICE IF AWAKE OR CALL DOCTOR OR 911 IF NOT AWAKE. IF GLUCOSE OVER 400 GIVE 10 UNITS AND CALL DOCTOR. 04/17/14 Sertraline Hcl (ZOLOFT) 50 Mg Tablet, 50 MG PO QDAY 04/17/14 Lisinopril (LISINOPRIL) 20 Mg Tablet, 40 MG PO QDAY, #30 3 Refills 04/17/14 Reviewed Nurses Notes: Yes Hx Smoking: Yes (10/12PPD) Smoking Status: Current: Every Day Smoker Exposure to Second Hand Smoke?: No Hx Substance Use Disorder: No Hx Alcohol Use: No Constitutional Vital Sign - Last 24 Hours 12/02/18 12/02/18 12/02/18 12/02/18 20:14 20:16 20:31 20:34 Temp 98.5 Pulse 71 67 Resp 14 B/P (MAP) 139/81 (100) 139/81 129/75 (93) Pulse Ox 98 98 12/02/18 12/02/18 12/02/18 12/02/18 20:42 20:47 21:00 21:17 Pulse 64 63 69 B/P (MAP) ???/??? (1665) Pulse Ox 97 96 94 12/02/18 12/02/18 12/02/18 12/02/18 21:30 21:47 22:00 22:17 Pulse ??? 64 B/P (MAP) ???/??? (1665) 122/85 (97) Pulse Ox 100 12/02/18 22:30 B/P (MAP) 142/89 (106) Physical Exam General Appearance: The patient is alert. No acute distress. Sleeping when I go in to examine her. She was able to walk to the bathroom but did have a limp with the left leg. Eyes: Pupils are equal, round. No pallor, injection or icterus. ENT: Mucous membranes are moist. Respiratory: Lungs are clear to auscultation. Cardiovascular: Regular rate and rhythm. No murmurs, gallops or rubs. No edema. Gastrointestinal: Abdomen is soft, nontender to palpation. Nondistended. No masses or organomegaly. Normal active bowel sounds. Neurological: Alert and oriented x3. No focal neurologic deficit with normal sensation in the lower leg. She has good motor function but hurts when she moves the left hip. Skin: Warm and dry. No rashes. Musculoskeletal: Pain over the greater trochanter with palpation. No other musculoskeletal pain with palpation. DIFFERENTIAL DIAGNOSIS: After history and physical exam, differential diagnosis was considered for hip pain uncertain etiology but suspect bursitis. Medical Decision Making Data Points Result Diagram: 12/02/18204812/02/182048 Laboratory Hematology Test 12/02/18 20:34 12/02/18 20:49 Urine Color Colorless Urine Clarity Clear Urine pH 7.0 pH (4.8-9.5) Urine Specific Laverne 1.002 Urine Protein Negative mg/dL (NEGATIVE) Urine Glucose (UA) 50 mg/dL (NEGATIVE) Urine Ketones Negative mg/dL (NEGATIVE) Urine Blood Negative (NEGATIVE) Urine Nitrite Negative (NEGATIVE) Urine Bilirubin Negative (NEGATIVE) Urine Urobilinogen Negative mg/dL (0.2-1.9) Urine Leukocyte Esterase Negative (NEGATIVE) Urine RBC <1 /HPF (0-2/HPF) Urine WBC 1 /HPF (0-5/HPF) Urine Squamous Epithelial Cells Few /LPF (</=FEW) Urine Bacteria Few /HPF (NONE-FEW) Urine Mucus None /HPF (NONE-FEW) Red Blood Count 4.41 M/uL (4.17-5.56) Mean Corpuscular Volume 85.2 fL (80.0-96.0) Mean Corpuscular Hemoglobin 29.5 pg (26.0-33.0) Mean Corpuscular Hemoglobin Concent 34.7 g/dL (32.0-36.0) Red Cell Distribution Width 13.2 % (11.5-14.5) Mean Platelet Volume 7.0 fL (7.2-11.1) Neutrophils (%) (Auto) 53.8 % (39.4-72.5) Lymphocytes (%) (Auto) 34.0 % (17.6-49.6) Monocytes (%) (Auto) 10.3 % (4.1-12.4) Eosinophils (%) (Auto) 1.2 % (0.4-6.7) Basophils (%) (Auto) 0.7 % (0.3-1.4) Nucleated RBC Relative Count (auto) 0.0 /100WBC Neutrophils # (Auto) 3.4 K/uL (2.0-7.4) Lymphocytes # (Auto) 2.1 K/uL (1.3-3.6) Monocytes # (Auto) 0.6 K/uL (0.3-1.0) Eosinophils # (Auto) 0.1 K/uL (0.0-0.5) Basophils # (Auto) 0.0 K/uL (0.0-0.1) Nucleated RBC Absolute Count (auto) 0.00 K/uL Erythrocyte Sedimentation Rate 27 mm/HOUR (0-20) Sodium Level 130 mmol/L (137-145) Potassium Level 3.5 mmol/L (3.5-5.0) Chloride Level 93 mmol/L (98-107) Carbon Dioxide Level 25 mmol/L (22-31) Blood Urea Nitrogen 19 mg/dl (7-18) Creatinine 0.90 mg/dl (0.52-1.04) Glomerular Filtration Rate Calc > 60.0 Random Glucose 260 mg/dl (75-110) Calcium Level 9.8 mg/dl (8.4-10.2) Total Bilirubin 0.8 mg/dl (0.2-1.3) Aspartate Amino Transf (AST/SGOT) 34 U/L (0-35) Alanine Aminotransferase (ALT/SGPT) 39 U/L (0-56) Alkaline Phosphatase 118 U/L (0-126) C-Reactive Protein < 0.5 mg/dl (<1.0) Total Protein 7.6 g/dl (6.3-8.2) Albumin 4.3 g/dl (3.5-5.0) Chemistry Test 12/02/18 20:34 12/02/18 20:49 Urine Color Colorless Urine Clarity Clear Urine pH 7.0 pH (4.8-9.5) Urine Specific Laverne 1.002 Urine Protein Negative mg/dL (NEGATIVE) Urine Glucose (UA) 50 mg/dL (NEGATIVE) Urine Ketones Negative mg/dL (NEGATIVE) Urine Blood Negative (NEGATIVE) Urine Nitrite Negative (NEGATIVE) Urine Bilirubin Negative (NEGATIVE) Urine Urobilinogen Negative mg/dL (0.2-1.9) Urine Leukocyte Esterase Negative (NEGATIVE) Urine RBC <1 /HPF (0-2/HPF) Urine WBC 1 /HPF (0-5/HPF) Urine Squamous Epithelial Cells Few /LPF (</=FEW) Urine Bacteria Few /HPF (NONE-FEW) Urine Mucus None /HPF (NONE-FEW) White Blood Count 6.2 k/uL (4.5-11.0) Red Blood Count 4.41 M/uL (4.17-5.56) Hemoglobin 13.0 g/dL (12.0-16.0) Hematocrit 37.5 % (34.0-47.0) Mean Corpuscular Volume 85.2 fL (80.0-96.0) Mean Corpuscular Hemoglobin 29.5 pg (26.0-33.0) Mean Corpuscular Hemoglobin Concent 34.7 g/dL (32.0-36.0) Red Cell Distribution Width 13.2 % (11.5-14.5) Platelet Count 299 K/uL (150-450) Mean Platelet Volume 7.0 fL (7.2-11.1) Neutrophils (%) (Auto) 53.8 % (39.4-72.5) Lymphocytes (%) (Auto) 34.0 % (17.6-49.6) Monocytes (%) (Auto) 10.3 % (4.1-12.4) Eosinophils (%) (Auto) 1.2 % (0.4-6.7) Basophils (%) (Auto) 0.7 % (0.3-1.4) Nucleated RBC Relative Count (auto) 0.0 /100WBC Neutrophils # (Auto) 3.4 K/uL (2.0-7.4) Lymphocytes # (Auto) 2.1 K/uL (1.3-3.6) Monocytes # (Auto) 0.6 K/uL (0.3-1.0) Eosinophils # (Auto) 0.1 K/uL (0.0-0.5) Basophils # (Auto) 0.0 K/uL (0.0-0.1) Nucleated RBC Absolute Count (auto) 0.00 K/uL Erythrocyte Sedimentation Rate 27 mm/HOUR (0-20) Glomerular Filtration Rate Calc > 60.0 Calcium Level 9.8 mg/dl (8.4-10.2) Total Bilirubin 0.8 mg/dl (0.2-1.3) Aspartate Amino Transf (AST/SGOT) 34 U/L (0-35) Alanine Aminotransferase (ALT/SGPT) 39 U/L (0-56) Alkaline Phosphatase 118 U/L (0-126) C-Reactive Protein < 0.5 mg/dl (<1.0) Total Protein 7.6 g/dl (6.3-8.2) Albumin 4.3 g/dl (3.5-5.0) Urinalysis Test 12/02/18 20:34 Urine Color Colorless Urine Clarity Clear Urine pH 7.0 pH (4.8-9.5) Urine Specific Laverne 1.002 Urine Protein Negative mg/dL (NEGATIVE) Urine Glucose (UA) 50 mg/dL (NEGATIVE) Urine Ketones Negative mg/dL (NEGATIVE) Urine Blood Negative (NEGATIVE) Urine Nitrite Negative (NEGATIVE) Urine Bilirubin Negative (NEGATIVE) Urine Urobilinogen Negative mg/dL (0.2-1.9) Urine Leukocyte Esterase Negative (NEGATIVE) Urine RBC <1 /HPF (0-2/HPF) Urine WBC 1 /HPF (0-5/HPF) Urine Squamous Epithelial Cells Few /LPF (</=FEW) Urine Bacteria Few /HPF (NONE-FEW) Urine Mucus None /HPF (NONE-FEW) EKG/Imaging Imaging EXAMINATION: AP pelvis with lateral view of the left hip HISTORY: Left hip pain. COMPARISON: None. FINDINGS: Bones of the left hip demonstrate normal alignment. No evidence of acute fracture or dislocation. The joint space is preserved. There is some localized soft tissue calcification adjacent to the left greater trochanter. Remainder of the bony pelvis appears radiographically intact. Normal mineralization. IMPRESSION: 1. No acute osseous findings at the left hip. 2. Localized calcification adjacent to the greater trochanter could relate to calcific tendinitis, possibly at the gluteus medius insertion. Correlate clinically. Report Dictated By: Brennon Medley MD at 12/02/2018 9:53 PM ED Course/Re-evaluation ED Course Labs with mild elevation of ESR, otherwise negative. Imaging negative for any fractures or other acute pathology, but with changes showing past bursitis of the greater trochanter. Discussed with patient. Small prescription for pain medicine and start Steroid burst. Recommended follow-up with orthopedic surgery if still having problems with this. Decision to Disposition Date: Dec 02, 2018 Decision to Disposition Time: 23:01 Depart Departure Latest Vital Signs Vital Signs Date Time Temp Pulse Resp B/P (MAP) Pulse Ox O2 Delivery O2 Flow Rate FiO2 12/02/18 22:30 142/89 (106) 12/02/18 22:17 64 100 12/02/18 20:16 98.5 14 Impression: Primary Impression: Trochanteric bursitis of left hip Condition: Improved Disposition: HOME OR SELF-CARE Referrals: CATRACHITA ADAM MD (PCP) New Scripts Prednisone (PREDNISONE) 20 Mg Tablet 40 MG PO QDAY for 4 Days, #8 TAB 0 Refills Prov: DANGELO SAL MD 12/02/18 Patient Instructions: Hip Bursitis (ED) DANGELO SAL MD Dec 02, 2018 20:15
[2018-12-02] MEDS ORDERED: oxyCODONE/ACETAMIN 5/325MG TH 2 TAB/BOTTLE PO ONE (21:05)
[2018-12-02 21:12] LABS: PLATELET COUNT, AUTOMATED 299 K/uL (150-450)
--- NOTE | 2018-12-02 22:03 | RADIOLOGY IMAGING REPORT ---
FACILITY: [facility] - [place] PATIENT NAME: Kim Price : 1975 MR: [id number] V: [id number] EXAM DATE: ORDERING PHYSICIAN: DANGELO SAL TECHNOLOGIST: Location: [facility] Patient: Kim Price : 1975 Visit/Account:[id number] Date of Sevice: 12/02/2018 EXAMINATION: AP pelvis with lateral view of the left hip HISTORY: Left hip pain. COMPARISON: None. FINDINGS: Bones of the left hip demonstrate normal alignment. No evidence of acute fracture or dislocation. The joint space is preserved. There is some localized soft tissue calcification adjacent to the left greater trochanter. Remainder of the bony pelvis appears radiographically intact. Normal mineralization. IMPRESSION: 1. No acute osseous findings at the left hip. 2. Localized calcification adjacent to the greater trochanter could relate to calcific tendinitis, po ssibly at the gluteus medius insertion. Correlate clinically. Report Dictated By: Brennon Medley MD at 12/02/2018 9:53 PM Report E-Signed By: Brennon Medley MD at 12/02/2018 9:59 PM WSN:[id number]
[2018-12-02 22:30] VITALS: BP 142/89
[2018-12-02] MEDS ORDERED: predniSONE 20 MG TAB PO ONE (23:00)
[2018-12-02] MEDS ORDERED: PRED20TA6 PO (23:02)
== END 2018-12-02 23:14 | disposition home or self-care (01) ==
LOC: ER 20:15
DX: M70.62 Trochanteric bursitis, left hip (principal)
CPT/HCPCS: 36415; 81001; 82040; 82247; 82310; 82374; 82435; 82565; 82947; 84075; 84132; 84155; 84295; 84450; 84460; 84520; 85025; 85651; 86140; 99283

== ENCOUNTER 2019-02-06 22:49 | Emergency (ER) | payer MEDICAID ==
[2014-04-14 10:50] VITALS: Wt 72.6 kg
--- NOTE | 2019-02-06 23:25 | ER Report ---
History and Physical Time Seen By MD: 23:25 Hx. of Stated Complaint: patient started having pain again in her right hip, same hip that she has been having pain in before. patient has not taken any medication to help with her pain before calling ambulance. HPI/ROS CHIEF COMPLAINT: hip pain HISTORY OF PRESENT ILLNESS: This is a 43 year old female. She has chronic hip pain in right hip, and we have seen her in the past. Tonight had worsening of the pain and says she could not walk. Called the ambulance. She has not taking any medicines for pain. No fevers or chills. Pain in lateral right hip. Worsens with movement or palpation of the area. No injury. No shortness of breath. No rashes. Allergies: Coded Allergies: quinine (Verified Allergy, Severe, SOB, 08/17/18) Home Meds Active Scripts Prednisone (PREDNISONE) 20 Mg Tablet, 40 MG PO QDAY for 4 Days, #8 TAB 0 Refills Prov:DANGELO SAL MD 12/02/18 Reported Medications Amlodipine Besylate (AMLODIPINE BESYLATE) 5 Mg Tablet, 1 TAB PO QDAY, TAB 09/20/18 Trazodone Hcl (TRAZODONE HCL) 50 Mg Tablet, 50 MG PO QHS 08/27/18 Aspirin (ASPIR 81) 81 Mg Tablet.dr, 81 MG PO QDAY, TAB 06/26/18 Atorvastatin Calcium (LIPITOR) 40 Mg Tablet, 1 TAB PO QDAY, TAB 03/28/18 Metoprolol Succinate (TOPROL XL) 50 Mg Tab.er.24h, 2 TAB PO QDAY, TAB 05/19/16 Insulin Lispro 100 Un/Ml Pen (HUMALOG 3 ML PEN) 100 Unit/1 Ml Insuln.pen, 27 UNIT SQ ACHS, #1 3 Refills FOR GLUCOSE 150-200 GIVE 2 UNITS. FOR GLUCOSE 201-250 GIVE 4 UNITS. FOR GLUCOSE 251-300 GIVE 6 UNITS. FOR GLUCOSE 301-350 GIVE 8 UNITS. FOR GLUCOSE OVER 350 GIVE 10 UNITS. IF GLUCOSE UNDER 50, DRINK JUICE IF AWAKE OR CALL DOCTOR OR 911 IF NOT AWAKE. IF GLUCOSE OVER 400 GIVE 10 UNITS AND CALL DOCTOR. 04/17/14 Sertraline Hcl (ZOLOFT) 50 Mg Tablet, 50 MG PO QDAY 04/17/14 Lisinopril (LISINOPRIL) 20 Mg Tablet, 40 MG PO QDAY, #30 3 Refills 04/17/14 Reviewed Nurses Notes: Yes Hx Smoking: Yes (10/12PPD) Smoking Status: Current: Every Day Smoker Exposure to Second Hand Smoke?: No Hx Substance Use Disorder: No Hx Alcohol Use: No Constitutional Vital Sign - Last 24 Hours 02/06/19 22:52 Temp 98.7 Pulse 79 Resp 24 B/P (MAP) 141/98 Pulse Ox 93 O2 Delivery Room Air Physical Exam General Appearance: Alert, moaning in pain, worsens with movements. Eyes: Pupils equal and round no injection. Respiratory: Breathing easily otherwise, Clear to auscultation. Cardiac: regular rate and rhythm. Normal pulses in feet. Normal cap refill. Neuro: Normal sensation and movement. Musculoskeletal: Pain with palpation over the area of the greater trochanter at the center and extending out from there. No pain in posterior hip, groin, or mid-thigh and knee. Pain worsens with movement of the hip. Skin: No rashes or lesions. DIFFERENTIAL DIAGNOSIS: After history and physical exam differential diagnosis was considered for hip pain, likely bursitis, but will look for other possible causes as well. Medical Decision Making Data Points Result Diagram: 02/06/19 2345 02/06/19 2345 Laboratory Hematology Test 02/06/19 23:45 Red Blood Count 4.79 M/uL (4.17-5.56) Mean Corpuscular Volume 88.4 fL (80.0-96.0) Mean Corpuscular Hemoglobin 30.2 pg (26.0-33.0) Mean Corpuscular Hemoglobin Concent 34.2 g/dL (32.0-36.0) Red Cell Distribution Width 13.8 % (11.5-14.5) Mean Platelet Volume 8.1 fL (7.2-11.1) Neutrophils (%) (Auto) 77.5 % (39.4-72.5) Lymphocytes (%) (Auto) 12.6 % (17.6-49.6) Monocytes (%) (Auto) 8.8 % (4.1-12.4) Eosinophils (%) (Auto) 0.6 % (0.4-6.7) Basophils (%) (Auto) 0.5 % (0.3-1.4) Nucleated RBC Relative Count (auto) 0.1 /100WBC Neutrophils # (Auto) 7.6 K/uL (2.0-7.4) Lymphocytes # (Auto) 1.2 K/uL (1.3-3.6) Monocytes # (Auto) 0.9 K/uL (0.3-1.0) Eosinophils # (Auto) 0.1 K/uL (0.0-0.5) Basophils # (Auto) 0.1 K/uL (0.0-0.1) Nucleated RBC Absolute Count (auto) 0.01 K/uL Erythrocyte Sedimentation Rate 52 mm/HOUR (0-20) Sodium Level 135 mmol/L (137-145) Potassium Level 3.4 mmol/L (3.5-5.0) Chloride Level 97 mmol/L (98-107) Carbon Dioxide Level 29 mmol/L (22-31) Blood Urea Nitrogen 18 mg/dl (7-18) Creatinine 1.10 mg/dl (0.52-1.04) Glomerular Filtration Rate Calc 53.7 Random Glucose 335 mg/dl (75-110) Calcium Level 9.1 mg/dl (8.4-10.2) Total Bilirubin 0.5 mg/dl (0.2-1.3) Aspartate Amino Transf (AST/SGOT) 24 U/L (0-35) Alanine Aminotransferase (ALT/SGPT) 32 U/L (0-56) Alkaline Phosphatase 197 U/L (0-126) C-Reactive Protein 1.2 mg/dl (<1.0) Total Protein 7.9 g/dl (6.3-8.2) Albumin 4.4 g/dl (3.5-5.0) Chemistry Test 02/06/19 23:45 White Blood Count 9.7 k/uL (4.5-11.0) Red Blood Count 4.79 M/uL (4.17-5.56) Hemoglobin 14.5 g/dL (12.0-16.0) Hematocrit 42.3 % (34.0-47.0) Mean Corpuscular Volume 88.4 fL (80.0-96.0) Mean Corpuscular Hemoglobin 30.2 pg (26.0-33.0) Mean Corpuscular Hemoglobin Concent 34.2 g/dL (32.0-36.0) Red Cell Distribution Width 13.8 % (11.5-14.5) Platelet Count 259 K/uL (150-450) Mean Platelet Volume 8.1 fL (7.2-11.1) Neutrophils (%) (Auto) 77.5 % (39.4-72.5) Lymphocytes (%) (Auto) 12.6 % (17.6-49.6) Monocytes (%) (Auto) 8.8 % (4.1-12.4) Eosinophils (%) (Auto) 0.6 % (0.4-6.7) Basophils (%) (Auto) 0.5 % (0.3-1.4) Nucleated RBC Relative Count (auto) 0.1 /100WBC Neutrophils # (Auto) 7.6 K/uL (2.0-7.4) Lymphocytes # (Auto) 1.2 K/uL (1.3-3.6) Monocytes # (Auto) 0.9 K/uL (0.3-1.0) Eosinophils # (Auto) 0.1 K/uL (0.0-0.5) Basophils # (Auto) 0.1 K/uL (0.0-0.1) Nucleated RBC Absolute Count (auto) 0.01 K/uL Erythrocyte Sedimentation Rate 52 mm/HOUR (0-20) Glomerular Filtration Rate Calc 53.7 Calcium Level 9.1 mg/dl (8.4-10.2) Total Bilirubin 0.5 mg/dl (0.2-1.3) Aspartate Amino Transf (AST/SGOT) 24 U/L (0-35) Alanine Aminotransferase (ALT/SGPT) 32 U/L (0-56) Alkaline Phosphatase 197 U/L (0-126) C-Reactive Protein 1.2 mg/dl (<1.0) Total Protein 7.9 g/dl (6.3-8.2) Albumin 4.4 g/dl (3.5-5.0) EKG/Imaging Imaging INDICATION: hip pain EXAM DATE: 02/06/2019 11:40 PM COMPARISON: 12/02/2018 radiographs, 04/14/2014 CT abdomen and pelvis. FINDINGS: AP view the pelvis with frog-leg views of the right hip. Mineralization is normal. No acute alignment abnormality or fracture. Minimal osteoarthrosis at both hips. Amorphous calcification may be located near the greater trochanter on the right. IMPRESSION: 1. No acute osseous abnormality of the pelvis and right hip. 2. Mild bilateral hip osteoarthrosis. 3. Amorphous calcification may be located near the right greater trochanter computed represent heterotopic ossification or calcific tendinitis. Alternatively this may be in overlying soft tissues. Report Dictated By: Alin Wilson MD at 02/07/2019 12:[address] LOWER EXT W/O RT INDICATION: Chronic right hip pain. EXAM DATE: 02/07/2019 1:00 AM COMPARISON: Same-day radiographs, CT abdomen and pelvis 04/14/2014. TECHNIQUE: Axial noncontrast CT images of the right hip were obtained. Sagittal and coronal reconstructions were performed. One of the following dose optimization techniques was utilized in the performance of this exam: Automated exposure control; adjustment of the mA and/or kV according to the patient's size; or use of an iterative reconstruction technique. Specific details can be referenced in the facility's radiology CT exam operational policy. FINDINGS: Overall bone mineralization is normal. No fracture or dislocation. As seen on radiographs, there is amorphous calcification adjacent to the lateral superior aspect of the right greater trochanter that appears to follow up the gluteus medius insertion. There is adjacent inflammatory change. Minimal osteoarthrosis of the right hip. No apparent joint effusion. Remaining soft tissues and intra-abdominal contents are unremarkable. Normal appendix. 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 Report Dictated By: Alin Wilson MD at 02/07/2019 1:51 AM ED Course/Re-evaluation Clinical Indication for ER IV: IV Access ED Course Patient with normal CBC, but elevated ESR. Imaging shows calcium and signs of bursitis and tendonitis over area of greater trochanter. Procedure: Hip bursa injection After verbal informed consent from patient explaining the risks including infection and bleeding and injection was performed on the greater trochanter of the right hip. The injection was performed after the patient was prepped in the usual fashion. The skin was anesthetized with 1% lidocaine. Using the no touch technique, 1 cc of 1% lidocaine without epinephrine combined with another cc of 40 mg of Kenalog was injected around the hip bursa. There were no complications. The procedure was performed by myself. After injection, the patient had significant relief of her pain although not complete. Recommended follow-up with primary care or orthopedic surgery for further evaluation. Decision to Disposition Date: February 07, 2019 Decision to Disposition Time: 02:29 Depart Departure Latest Vital Signs Vital Signs Date Time Temp Pulse Resp B/P (MAP) Pulse Ox O2 Delivery O2 Flow Rate FiO2 02/06/19 22:52 98.7 79 24 141/98 93 Room Air Impression: Primary Impression: Trochanteric bursitis of right hip Condition: Improved Disposition: HOME OR SELF-CARE Referrals: CATRACHITA ADAM MD (PCP) Patient Instructions: Hip Bursitis (ED) Additional Instructions: Use Tylenol or Ibuprofen as needed for pain. Call your primary care provider for follow-up or see [facility] for further evaluation. Consider having them prescribe physical therapy if needed. DANGELO SAL MD February 06, 2019 23:25
[2019-02-06] MEDS ORDERED: KETOROLAC 30 MG/ML VIAL IVP ONE (23:40)
[2019-02-07 00:10] LABS: PLATELET COUNT, AUTOMATED 259 K/uL (150-450)
--- NOTE | 2019-02-07 00:52 | RADIOLOGY IMAGING REPORT ---
FACILITY: [facility] - [place] PATIENT NAME: Kim Price : 1975 MR: [id number] V: [id number] EXAM DATE: ORDERING PHYSICIAN: DANGELO SAL TECHNOLOGIST: Location: [facility] [place] Patient: Kim Price : 1975 Visit/Account:[id number] Date of Sevice: 02/06/2019 INDICATION: hip pain EXAM DATE: 02/06/2019 11:40 PM COMPARISON: 12/02/2018 radiographs, 04/14/2014 CT abdomen and pelvis. FINDINGS: AP view the pelvis with frog-leg views of the right hip. Mineralization is normal. No acute alignment abnormality or fracture. Minimal osteoarthrosis at both hips. Amorphous calcification may be locat ed near the greater trochanter on the right. IMPRESSION: 1. No acute osseous abnormality of the pelvis and right hip. 2. Mild bilateral hip osteoarthrosis. 3. Amorphous calcification may be located near the right greater trochanter computed represent heter otopic ossification or calcific tendinitis. Alternatively this may be in overlying soft tissues. Report Dictated By: Alin Wilson MD at 02/07/2019 12:41 AM Report E-Signed By: Alin Wilson MD at 02/07/2019 12:48 AM [id number]
[2019-02-07] MEDS ORDERED: TRIAMCINOLONE ACE 40 MG/ML VL IM ONE (02:00)
--- NOTE | 2019-02-07 02:10 | RADIOLOGY IMAGING REPORT ---
[place] [facility] [place] Kim [place] : 1975 MR: [id number] V: [id number] EXAM DATE: ORDERING PHYSICIAN: DANGELO SAL TECHNOLOGIST: [place] [facility] [place] Kim [place] : 1975 Visit/Account:[id number] Date of Sevice: 02/07/2019 CT LOWER EXT W/O RT INDICATION: Chronic right hip pain. EXAM DATE: 02/07/2019 1:00 AM COMPARISON: Same-day radiographs, CT abdomen and pelvis 04/14/2014. TECHNIQUE: Axial noncontrast CT images of the right hip were obtained. Sagittal and coronal reconstr uctions were performed. One of the following dose optimization techniques was utilized in the perfor trinity of this exam: Automated exposure control; adjustment of the mA and/or kV according to the patie nt's size; or use of an iterative reconstruction technique. Specific details can be referenced in [facility] facility's radiology CT exam operational policy. FINDINGS: Overall bone mineralization is normal. No fracture or dislocation. As seen on radiographs, there is amorphous calcification adjacent to the lateral superior aspect of [facility] right greater trochanter that appears to follow up the gluteus medius insertion. There is adjacen t inflammatory change. Minimal osteoarthrosis of the right hip. No apparent joint effusion. Remaining soft tissues and int ra-abdominal contents are unremarkable. Normal appendix. 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 Report Dictated By: Alin Wilson MD at 02/07/2019 1:51 AM Report E-Signed By: Alin Wilson MD at 02/07/2019 2:05 AM WSN:[id number]
[2019-02-07 03:00] VITALS: BP 154/92
== END 2019-02-07 03:24 | disposition home or self-care (01) ==
LOC: ER 23:29
DX: M70.61 Trochanteric bursitis, right hip (principal)
CPT/HCPCS: 20610; 73502; 73700; 85025; 85651; 86140; 96374; 99284; J1885; J3301; 82040; 82247; 82310; 82374; 82435; 82565; 82947; 84075; 84132; 84155; 84295; 84450; 84460; 84520

== ENCOUNTER → 2019-02-06 | Outpatient (CLI) | payer MEDICAID ==
[2014-04-14 10:50] VITALS: BMI 24.3
[~2019-02-06] MED LIST changes: +PRED20TA6 PO
== END ==
LOC: AMB 22:16
DX: M25.551 Pain in right hip (principal); I10 Essential (primary) hypertension
CPT/HCPCS: A0425; A0427

== ENCOUNTER → 2019-04-30 | Outpatient (CLI) | payer MEDICAID ==
[2014-04-14 10:50] VITALS: BMI 24.3
[~2019-04-30] MED LIST changes: -TRAZ50TA34 PO; +TRAZ50TA52 PO
--- NOTE | 2019-04-30 14:31 | RADIOLOGY IMAGING REPORT ---
FACILITY: [facility] - [place] PATIENT NAME: Kim Price : 1975 MR: [id number] V: [id number] EXAM DATE: ORDERING PHYSICIAN: ANTONIO WOODARD TECHNOLOGIST: Location: [facility] Patient: Kim Price : 1975 Visit/Account:[id number] Date of Sevice: 04/30/2019 Abdomen single view: HISTORY: Left lower quadrant pain. COMPARISON: None. FINDINGS: Supine view was obtained of the abdomen. Bowel gas pattern is nonspecific without evidence of ileus, obstruction or free air. Moderate to large volume of stool is present in the colon, query symptoms constipation. There are no calcifications identified over the kidneys or along the expected course of the ureters. Multiple round calcifications in the pelvis are likely phleboliths. Osseous structures are unremarkable. IMPRESSION: Nonspecific bowel gas pattern. There is no evidence of ileus or obstruction. Moderate t o large volume of stool the colon may be indicative of constipation, clinically correlate. Report Dictated By: Silvia Ramey MD at 04/30/2019 2:08 PM Report E-Signed By: Silvia Ramey MD at 04/30/2019 2:10 PM WSN:[id number]
== END ==
LOC: RAD 10:23
PROVIDERS: ATTEND Family Medicine
DX: R10.32 Left lower quadrant pain (principal)
CPT/HCPCS: 74018; 81025